=== PATIENT | female | born 1950 | race Caucasian/White ===

== ENCOUNTER 2020-02-26 03:48 | Emergency (ER) | payer OTHER ==
[~2020-02-26] VITALS: Ht 152.4 cm; Wt 101.2 kg
[2020-02-26 05:01] VITALS: BP 152/73
== END 2020-02-26 06:05 | disposition home or self-care (01) ==
LOC: ER 03:48
DX: R68.84 Jaw pain (principal); K08.89 Other specified disorders of teeth and supporting structures
CPT/HCPCS: 70486

== ENCOUNTER 2025-06-14 12:45 | Inpatient (IN) | payer OTHER ==
[~2025-06-14] VITALS: Ht 152.4 cm; Wt 103.3 kg
[~2025-06-14 12:45] MED LIST: APIX5TAB PO; ATEN-60 PO; HYDR25TA4 PO; LOSA-535 PO; POTA-228 PO; ROSU10TA64 PO; TRAZ-228 PO
[2025-06-14 13:52] LABS: Hematocrit 40.2 % (36.0-46.0); Hemoglobin 13.6 g/dL (12.2-16.2); Mean Corpuscular Hemoglobin 32.1 pg (28.0-32.0); Mean Corpuscular Volume 94.5 fL (80.0-100.0); Nucleated Red Blood Cells % 0.0 %
[2025-06-14 14:07] LABS: Albumin 4.4 g/dL (3.2-4.8); Anion Gap 14 (5-15); BUN/Creatinine Ratio 12.4 (10.0-20.0); Blood Urea Nitrogen 15 mg/dL (9-23); Calcium 9.3 mg/dL (8.7-10.4); Carbon Dioxide 25 mmol/L (20-31); Glucose 106 mg/dL (74-106); Sodium 136 mmol/L (136-145); Total Protein 7.0 g/dL (5.7-8.2)
[2025-06-14 14:08] LABS: Alanine Aminotransferase 62 U/L (7-40); Alkaline Phosphatase 120 U/L (46-116); Bilirubin, Total 1.3 mg/dL (0.2-1.0); Chloride 97 mmol/L (98-107); Lipase 65 U/L (12-53); Potassium 3.5 mmol/L (3.5-5.1)
--- NOTE | 2025-06-14 14:16 | DVH ---
EXAM: CT CT AB PEL WO CON-NO ORAL OR IV INDICATION: abd pain TECHNIQUE: Volumetric multidetector CT images of the abdomen and pelvis were obtained without contras t. All CT scans at this facility use dose modulation, iterative reconstruction, and/or weight based d osing when appropriate to reduce radiation dose to as low as reasonably achievable. COMPARISON: None FINDINGS: [LOWER CHEST]: The partially visualized lung bases are clear without a pleural effusion. The cardiac size is normal without pericardial effusion. coronary artery calcifications. [LIVER]: Normal hepatic size without suspicious focal lesion. [GALLBLADDER AND BILIARY TREE]: Gallbladder hydrops. No cholelithiasis. [SPLEEN]: Unremarkable. [PANCREAS]: Unremarkable. [ADRENAL GLANDS]: Unremarkable [KIDNEYS]: No hydronephrosis. No nephroureterolithiasis. No suspicious focal lesion. [BLADDER]: Unremarkable for the degree distention. [REPRODUCTIVE ORGANS]: Unremarkable. [BOWEL/MESENTERY]: Postsurgical changes of the stomach. 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 No CT evidence of bowel obstruction. mild sigmoid diverticulosis. [ASCITES]: Absent [LYMPHADENOPATHY]: No pathologically enlarged lymph nodes by CT size criteria [VASCULATURE]: No aneurysmal dilatation. [ABDOMINAL WALL]: Unremarkable. [MUSCULOSKELETAL]: No acute fracture or aggressive focal osseous lesion. Multifocal degenerative lara ge of the visualized spine. IMPRESSION: 1. No CT evidence of an acute abdominal/pelvic process. 2. Gallbladder hydrops. 3. Mild sigmoid diverticulosis.
[2025-06-14 14:17] LABS: Lactic Acid w/Reflex 2.6 mmol/L (0.4-2.0)
--- NOTE | 2025-06-14 14:25 | ED.PDOC ---
GI ASSESSMENT HPI Comments HPI: 75 year old female presents to the ED with a chief complaint of abdominal pain onset today (06/14/25) about 30 minutes prior to ED arrival. Patient states she was running errands, when she began experiencing RUQ pain, unable to describe pain. Patient states she has not experienced similar pain in the past, is also experiencing nausea. Patient did not take any of her medications today. Denies vomiting, diarrhea, fever, chills, chest pain, shortness of breath, melena, blood in stool, hematemesis, dysuria, hematuria. No other symptoms or modifying factors present at this time. Initial Vitals BP: 149/71 HR: 94 RR: 21 O2 Sat: 97% Temp: 97.7 F Past Medical history: a-fib, HTN, HLD, GERD Past Surgical history: gastric bypass Medications: Eliquis Social History: Denies smoking, ETOH, and drug use. Allergies: NKDA BELHUMEUR: ABD PAIN / NAUSEA. HPI: Poor Historian. REVIEW OF SYSTEMS: CONSTITUTIONAL: Denies acute: fever, diaphoresis, chills, generalized weakness. HEAD: Denies acute: headache, photophobia Eyes: Denies acute: Double vision, vision loss, eye pain, eye discharge. EARS: Denies acute: tinnitus, hearing loss, ear discharge, ear pain, THROAT: Denies acute: sore throat, swelling, difficulty swallowing , pain with swallowing, change in voice. NECK: Denies acute: neck pain, neck swelling, stiff neck. HEART: Denies acute : chest pain, palpitations, LUNGS: Denies acute: SOB, wheezing, cough, hemoptysis ABDOMEN: Denies acute: Vomiting, diarrhea, melena , hematemesis, hematochezia SKIN: Denies acute: rash, redness, lesions, itchiness. EXTREMITIES: Denies acute: calf pain, numbness, tingling, weakness, denies pain in extremity. Denies acute: Low back pain. Neuro: Denies acute: focal neurological deficit, motor or sensory focal neurological deficit, tremors, seizure like activity, confusion, dizziness, change in mental status, loss of bowel or bladder function, cauda equina like symptoms. : Denies acute: dysuria, hematuria, flank pain, increase in urinary frequency. PSYCH: Denies acute: hallucination, suicidal ideation, homicidal ideation. FEMALE: Denies acute: abnormal vaginal bleeding, foul odor, unusual discharge. PHYSICAL EXAM: General: ----moderate----acute distress, awake and alert. Head: normocephalic, atraumatic. Neck: supple, trachea is midline, no swelling. Throat: Normal phonation. Eyes:, no erythema, no purulent discharge, no proptosis, no icterus. Heart: regular rate, regular rhythm, no significant murmur appreciated. Lungs: no apparent respiratory distress, Able to speak in full sentences. No wheezing, no rhonchi, no crackles. No stridors Clear to auscultation bilaterally. Abdomen: Epigastric and right upper quadrant tender to palpation, non distended, soft, no guarding, no rebound, + bowel sounds. Obese Neuro: Awake, Alert, oriented to name, self, situation, follows commands GCS=15. Speech is normal. Skin: no petechia, no purpura, no cyanosis, non-pale, not jaundice. Lower extremities: --no - Pitting edema no deformity, no focal swelling, no calf TTP. Makes eye contact. moves all four extremities. Face: no apparent facial droop. ED COURSE: DISCLAIMER: This medical document was created using an electronic medical record system with voice recognition software and computerized dictation system. Although this document has been carefully reviewed, there might still be some phonetic and typographical errors. Occasional wrong-word or "sound-alike" substitutions may have occurred due to the inherent limitations of voice recognition software. These areas are purely typographical due to imperfections of the software programs and do not reflect any compromise in the patient's medical care. Please read the chart carefully and recognize, using context, where these substitutions have occurred. Chief Complaint: Abdominal Pain Time Seen by MD: 14:00 Reviewed Notes: Medications, Allergies Allergies: Coded Allergies: NO KNOWN ALLERGIES (Unverified , 02/26/20) Home Meds Active Scripts Metoprolol Succinate (Toprol Xl) 50 Mg Tab, 1 TAB PO DAILY, #30 TAB 1 Refill Prov:RIGOBERTO MCCONNELL MD 06/20/25 Losartan Potassium (Losartan Potassium) 25 Mg Tab, 50 MG PO DAILY for 30 Days, #60 TAB 1 Refill Prov:RIGOBERTO MCCONNELL MD 06/20/25 Hctz (Hydrochlorothiazide) 25 Mg Tab, 25 MG PO DAILY for 30 Days, #30 TAB 1 Refill Prov:RIGOBERTO MCCONNELL MD 06/20/25 Apixaban Base (ELIQUIS) 5 Mg Tab, 5 MG PO BID for 30 Days, #60 TAB 0 Refills Prov:RIGOBERTO MCCONNELL MD 06/20/25 Furosemide (Lasix) 20 Mg Tb, 1 TAB PO DAILY, #30 TAB 1 Refill Prov:RIGOBERTO MCCONNELL MD 06/20/25 Digoxin (Digoxin) 125 Mcg Tab, 125 MCG PO DAILY for 30 Days, #30 TAB 0 Refills Prov:RIGOBERTO MCCONNELL MD 06/20/25 Reported Medications Atenolol (Atenolol) 25 Mg Tab, 1 TAB PO DAILY for 90 Days, #90 06/20/25 Hydrochlorothiazide (Hydrochlorothiazide) 25 Mg Tab, 50 MG PO DAILY for 90 Days, #90 06/20/25 Trazodone Hcl (Trazodone Hcl) 100 Mg Tab, 1 TAB PO QPM for 90 Days, #90 06/20/25 Rosuvastatin Calcium (Rosuvastatin Calcium) 10 Mg Tab, 1 TAB PO DAILY for 90 Days, #90 06/20/25 Losartan Potassium (Losartan Potassium) 100 Mg Tab, 1 TAB PO DAILY for 90 Days, #90 06/20/25 Potassium Chloride (Potassium Chloride ER) 10 Meq Tab, 1 TAB PO DAILY for 90 Days, #90 06/20/25 Apixaban Base (ELIQUIS) 5 Mg Tab, 1 TAB PO BID for 90 Days, #180 06/20/25 Discontinued Reported Medications Atenolol (Atenolol) 50 Mg Tab, 50 MG PO DAILY for 30 Days, MG 06/15/25 Trazodone HCl (Trazodone Hydrochloride) 50 Mg Tab, 50 MG PO, TAB 06/15/25 Information Source: Patient Mode of Arrival: Wheelchair Timing: Hours Duration: Since onset Prehospital treatment: None Quality: Sharp Vomitus: None Severity: Moderate Recent: None Recent Hx of: None Pain Location: RUQ Modifying Factors: Nothing Associated sign and symptoms: Abdominal Pain Past Medical History PAST MEDICAL HISTORY: AFIB, GERD, High Lipids, HTN Surgical History (Other): gastric bypass UNIT CONTROLLER History: No Pertinent UNIT CONTROLLER History Family History Family History: Reviewed,noncontributory to illness, No family hx of Cancer, No family hx of DM, No family hx of Heart anthony, No family hx of HTN, No family hx ofKidney anthony, No family hx of Liver anthony, No family hx of Lung anthony, No family hx of Stroke Social History Smoker: Non-Smoker Alcohol: Denies ETOH Use Drugs: Denies Drug Use Lives In: Home Was a procedure done? Was a procedure done?: No GI differential Dx Differential Diagnosis: Other (DDX include Diverticulitis, colitis, gastroenteritis, acute abdomen, SBO, enteritis, constipation, volvulus, appendicitis, Gallbladder disease, choledocolithiasis, ascending cholangitis, pancreatitis, intraAbdominal mass/neoplasm, hepatitis, UTI, pylonephritis, kidney stone, aneurysm, dissection, Inflammatory bowel disease, gastroparesis, ischemic bowel, ) X-Ray, Labs, Meds, VS Vital Signs Date Time Temp Pulse Resp B/P (MAP) Pulse Ox O2 Delivery O2 Flow Rate FiO2 06/14/25 18:34 131/73 06/14/25 18:00 117 28 131/73 (92) 98 06/14/25 16:41 139/80 06/14/25 16:27 129 06/14/25 16:06 152 29 98 Nasal Cannula* 2 28 06/14/25 16:06 98.8 152 29 139/80 (99) 98 98.8 06/14/25 12:53 97.7 94 21 149/71 97 97.7 Lab Test 06/14/25 16:34 06/14/25 15:45 06/14/25 14:39 06/14/25 13:35 Range/Units Troponin I High Sensitivity 31 27 27 </=34 ng/L Hepatitis A IgM Antibody Negative Hepatitis B Surface Antigen Negative Negative Hepatitis B Core IgM Antibody Negative Negative Hepatitis C Antibody Negative Negative Lactic Acid Level 2.3 *H 2.6 *H 0.4-2.0 mmol/L White Blood Count 10.2 4.4-10.8 10^3/uL Red Blood Count 4.25 4.0-5.20 10^6/uL Hemoglobin 13.6 12.2-16.2 g/dL Hematocrit 40.2 36.0-46.0 % Mean Corpuscular Volume 94.5 80.0-100.0 fL Mean Corpuscular Hemoglobin 32.1 H 28.0-32.0 pg Mean Corpuscular Hemoglobin Concent 33.9 32.0-36.0 g/dL Red Cell Distribution Width 13.2 11.8-14.3 % Platelet Count 216 140-450 10^3/uL Mean Platelet Volume 7.7 6.9-10.8 fL Neutrophils (%) (Auto) 77.4 37.0-80.0 % Lymphocytes (%) (Auto) 12.6 10.0-50.0 % Monocytes (%) (Auto) 8.9 0.0-12.0 % Eosinophils (%) (Auto) 0.7 0.0-7.0 % Basophils (%) (Auto) 0.4 0.0-2.0 % Neutrophils # (Auto) 7.9 1.6-8.6 10 ^3/uL Lymphocytes # (Auto) 1.3 0.4-5.4 10 ^3/uL Monocytes # (Auto) 0.9 0-1.3 10 ^3/uL Eosinophils # (Auto) 0.1 0-0.8 10 ^3/uL Basophils # (Auto) 0 0-0.2 10 ^3/uL Nucleated Red Blood Cells 0.0 % Sodium Level 136 136-145 mmol/L Potassium Level 3.5 3.5-5.1 mmol/L Chloride Level 97 L 98-107 mmol/L Carbon Dioxide Level 25 20-31 mmol/L Anion Gap 14 5-15 Blood Urea Nitrogen 15 9-23 mg/dL Creatinine 1.21 H 0.550-1.02 mg/dL Glomerular Filtration Rate Calc 46 >90 mL/min BUN/Creatinine Ratio 12.4 10.0-20.0 Serum Glucose 106 74-106 mg/dL Calcium Level 9.3 8.7-10.4 mg/dL Total Bilirubin 1.3 H 0.2-1.0 mg/dL Aspartate Amino Transferase (AST) 127 H 13-40 U/L Alanine Aminotransferase (ALT) 62 H 7-40 U/L Alkaline Phosphatase 120 H 46-116 U/L Total Protein 7.0 5.7-8.2 g/dL Albumin 4.4 3.2-4.8 g/dL Lipase 65 H 12-53 U/L [facility] [id number] [place] [id number] Ph: [phone] DIAGNOSTIC IMAGING Diagnostic Imaging Report : [id number] Signed PATIENT: CYNTHIA GAONACCT: [id number] UNIT: [id number] : 1950 LOC: ER ROOM / BED: / AGE / SEX: 75 / F ADM STATUS: REG ER SERVICE [id number] ORDERING PHYSICIAN: SUMMER MOLINA DO PROCEDURE(s): ABPL - CT AB PEL WO CON-NO ORAL OR IV REASON: abd pain ORDER NUMBER(s): [id number], ACCESSION NUMBER(s): [id number] EXAM: CT CT AB PEL WO CON-NO ORAL OR IV INDICATION: abd pain TECHNIQUE: Volumetric multidetector CT images of the abdomen and pelvis were obtained without contrast. All CT scans at this facility use dose modulation, iterative reconstruction, and/or weight based dosing when appropriate to reduce radiation dose to as low as reasonably achievable. COMPARISON: None FINDINGS: [LOWER CHEST]: The partially visualized lung bases are clear without a pleural effusion. The cardiac size is normal without pericardial effusion. coronary artery calcifications. [LIVER]: Normal hepatic size without suspicious focal lesion. [GALLBLADDER AND BILIARY TREE]: Gallbladder hydrops. No cholelithiasis. [SPLEEN]: Unremarkable. [PANCREAS]: Unremarkable. [ADRENAL GLANDS]: Unremarkable [KIDNEYS]: No hydronephrosis. No nephroureterolithiasis. No suspicious focal lesion. [BLADDER]: Unremarkable for the degree distention. [REPRODUCTIVE ORGANS]: Unremarkable. [BOWEL/MESENTERY]: Postsurgical changes of the stomach. Overall appearance of Cordell-en-Y gastric bypass. No CT evidence of bowel obstruction. mild sigmoid diverticulosis. [ASCITES]: Absent [LYMPHADENOPATHY]: No pathologically enlarged lymph nodes by CT size criteria [VASCULATURE]: No aneurysmal dilatation. [ABDOMINAL WALL]: Unremarkable. [MUSCULOSKELETAL]: No acute fracture or aggressive focal osseous lesion. Multifocal degenerative change of the visualized spine. IMPRESSION: 1. No CT evidence of an acute abdominal/pelvic process. 2. Gallbladder hydrops. 3. Mild sigmoid diverticulosis. ATED BY: ABDIAZIZ ARRIAZA MD DICTATED DATE/TIME: 06/14/251413 SIGNED BY: ABDIAZIZ ARRIAZA MD SIGNED DATE/TIME: 06/14/251413 CC: Time of 1ST Reevaluation: 14:30 Reevaluation 1ST: Unchanged Time of 2ND Reevaluation: 19:31 (We were just notified that the patient has a fever that was checked rectally. Tylenol was ordered already.) Patient Education/Counseling: Diagnosis, Treatment Family Education/Counseling: No Family Present Comments MDM: patient presented with the above HPI.---abdominal pain---workup was initiated. patient was found with the above mentioned diagnosis. the following medications were ordered: please refer to order lists of meds and tests obtained by myself Dr. Molina. Patient ED course and VS have been stabilized. Patient has been reassessed in the ED and remained in a stable condition. Pertinent incidental findings were discussed with the patient and/or family. Patient/family voices understanding and is agreeable with plan. Patient has been observed in the ED adequate length of time to insure improvement/stability. Escalation of care considered: Consideration of escalation to observation or admission Patient was found with a atrial fibrillation with RVR. Patient later converted to sinus rhythm. Patient was ADMITTED to the medicine team for further evaluation and treatment of their presentation. All the reports of any imaging studies that were ordered by myself were reviewed by myself. Departure 1 Departure Time of Disposition: 14:27 Impression: Primary Impression: Abdominal pain Additional Impressions: Elevated LFTs Atrial fibrillation with RVR Fever Disposition: ADMITTED INPATIENT Condition: Guarded e-Prescriptions Metoprolol Succinate (Toprol Xl) 50 Mg Tab 1 TAB PO DAILY, #30 TAB 1 Refill Prov: RIGOBERTO MCCONNELL MD 06/20/25 Losartan Potassium (Losartan Potassium) 25 Mg Tab 50 MG PO DAILY for 30 Days, #60 TAB 1 Refill Prov: RIGOBERTO MCCONNELL MD 06/20/25 Hctz (Hydrochlorothiazide) 25 Mg Tab 25 MG PO DAILY for 30 Days, #30 TAB 1 Refill Prov: RIGOBERTO MCCONNELL MD 06/20/25 Apixaban Base (ELIQUIS) 5 Mg Tab 5 MG PO BID for 30 Days, #60 TAB 0 Refills Prov: RIGOBERTO MCCONNELL MD 06/20/25 Furosemide (Lasix) 20 Mg Tb 1 TAB PO DAILY, #30 TAB 1 Refill Prov: RIGOBERTO MCCONNELL MD 06/20/25 Digoxin (Digoxin) 125 Mcg Tab 125 MCG PO DAILY for 30 Days, #30 TAB 0 Refills Prov: RIGOBERTO MCCONNELL MD 06/20/25 Discharged With: Self Critical Care Note Critical Care Time?: Yes (45 min-critical care time only) I personally scribed for SUMMER MOLINA DO ([email or web address]) on 06/14/25 at 14:24. Electronically submitted by Neha Hammond ([email or web address]). I personally scribed for SUMMER MOLINA DO ([email or web address]) on 06/14/25 at 16:08. Electronically submitted by Neha Hammond ([email or web address]). SUMMER MOLINA DO Jun 14, 2025 14:24
[2025-06-14 16:06] VITALS: PULSE 152; RESP 29; O2SAT 98
[2025-06-14] MEDS: dilTIAZem 25 MG/5 ML VIAL IV ONE ×2 (16:15→17:30)
[2025-06-14] MEDS: ONDANSETRON HCL 4 MG/2 ML VIAL IV ONE (16:40)
[2025-06-14] MEDS: PANTOPRAZOLE 40 MG TAB PO ONE (16:41)
[2025-06-14] MEDS: SODIUM CHLORIDE 0.9% 500 ML IV ONE ×2 (16:41→19:54)
[2025-06-14] MEDS: fentaNYL CITRATE 100 MCG/2 ML VL IV ONE (16:41)
[2025-06-14] MEDS: SUCRALFATE 1 GM TAB PO ONE (16:41)
[2025-06-14] MEDS: LIDOCAINE VISCOUS 2% 15ML UD PO ONE (16:42)
--- NOTE | 2025-06-14 16:44 | ECG ---
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
[2025-06-14] MEDS ORDERED: NITROGLYCERIN 0.4 MG SL TAB SL PRN (19:15)
[2025-06-14] MEDS ORDERED: ONDANSETRON HCL 4 MG/2 ML VIAL IV PRN (19:15)
[2025-06-14] MEDS ORDERED: MORPHINE SULFATE INJ 2 MG/ml SYRG IV PRN (19:15)
[2025-06-14] MEDS: ACETAMINOPHEN 325 MG TAB PO ONE (19:38)
--- NOTE | 2025-06-14 19:39 | DVH ---
ULTRASOUND ABDOMEN, LIMITED RIGHT UPPER QUADRANT: REASON FOR EXAM: Transaminitis TECHNIQUE: Real-time sector scans in the transverse and longitudinal planes were obtained through th e right upper quadrant of the abdomen. FINDINGS: The liver is of normal size and contour. The liver is mildly echogenic. There is hepatopet al flow in the portal vein. There is no intrahepatic nor extrahepatic biliary ductal dilatation. The common bile duct is not seen. No gallstone is identified. There is no sonographic flaherty's sign. Th e gallbladder wall appears mildly edematous and thickened at 8 mm, nonspecific. The gallbladder is no t distended. The pancreas is obscured by bowel gas. The right kidney measures 9.1 cm. No hydronephrosis or nephrolithiasis is identified. There is no e vidence of right renal mass or cyst. The visualized portions of the abdominal aorta demonstrate no evidence of aneurysmal dilatation. The visualized inferior vena cava is unremarkable. There is no free fluid identified in the right upper quadrant. IMPRESSION: The liver is diffusely echogenic which may be secondary to steatosis or another diffuse hepatic proce ss. Correlate clinically and with liver function tests.
[2025-06-14] MEDS: PIPERACILLIN-TAZOB 3.375GM 100 ML IV ONE (19:55)
[2025-06-14] MEDS: APIXABAN 5 MG TAB PO SCH (22:07)
[2025-06-14 22:21] LABS: Urine Amorphous Crystal FEW /hpf (None Seen); Urine Protein, UAD TRACE (Negative)
[2025-06-15] VITALS (13 sets, daily range): BP systolic 124–147; BP diastolic 82–102; PULSE 80–120; RESP 16–20; TEMP 97.5–99.7; O2SAT 92–100
--- NOTE | 2025-06-15 04:43 | DVHHP2 ---
History of Present Illness Reason for Visit: Abdominal pain History of Present Illness 75-year-old female presents for evaluation of abdominal pain. Patient endorses a one day history of sharp abdominal pain across entire lower abdomen. Denies nausea or vomiting. No diarrhea. Reports having chills. Also patient was noted to be in AFib with RVR in the emergency department and started on Cardizem drip. Denies chest pain or palpitations. No shortness a breath. Past Medical History AFib, dyslipidemia, GERD, hypertension Past Surgical History Gastric bypass Family History Noncontributory Smoke: No ALCOHOL: none Drugs: None Lives: with Family Review of Systems Review of Systems Review of systems are currently negative otherwise addressed in HPI. Allergies: Coded Allergies: NO KNOWN ALLERGIES (Unverified , 02/26/20) Medications Current Medications Medications Dose Ordered Sig/Misti Route Start Time Stop Time Status Last Admin Dose Admin Pantoprazole Sodium 40 mg DAILY IV 06/15/25 10:00 Apixaban 5 mg BID PO 06/14/25 22:00 06/14/25 22:07 5 MG Atenolol 50 mg DAILY PO 06/15/25 10:00 Losartan Potassium 50 mg DAILY PO 06/15/25 10:00 Hydrochlorothiazide 50 mg DAILY PO 06/15/25 10:00 Diltiazem HCl 100 ml @ 5 mls/hr Q20H IV 06/14/25 19:15 06/14/25 19:47 5 MLS/HR Acetaminophen/ Hydrocodone Bitart 1 tab Q4HP PRN PO 06/14/25 19:15 Ondansetron HCl 4 mg Q4HP PRN IV 06/14/25 19:15 Acetaminophen 650 mg Q6HP PRN PO 06/15/25 00:00 Nitroglycerin 0.4 mg Q5MINP PRN SL 06/14/25 19:15 Morphine Sulfate 2 mg Q30M PRN IV 06/14/25 19:15 Exam Vital Signs Vital Signs Date Time Temp Pulse Resp B/P (MAP) Pulse Ox O2 Delivery O2 Flow Rate FiO2 06/15/25 02:30 84 20 112/74 (87) 96 06/15/25 01:44 97.6 97.6 06/14/25 19:30 Nasal Cannula* 2 28 Exam Gen: 75-year-old female mild distress, morbidly obese Skin: Warm, dry, normal color and texture, no rash. HEENT: Normocephalic atraumatic, mucous membranes moist and pink. Neck: Cervical and supraclavicular nodes normal without enlargement, trachea is midline, thyroid gland is normal without masses. Pulmonary: Clear to auscultation and percussion bilaterally. Cardiac: Irregular rhythm Abdomen: Soft, nontender, nondistended, bowel sounds present all 4 quadrants, no guarding, no rigidity, no organomegaly. Extremities: No cyanosis, clubbing, no edema Neuro: Cranial nerves II through XII grossly intact, normal affect and speech, no focal motor deficits. Labs/Xrays ORDERING PHYSICIAN: SUMMER MOLINA DO PROCEDURE(s): ABPL - CT AB PEL WO CON-NO ORAL OR IV REASON: abd pain ORDER NUMBER(s): [id number], ACCESSION NUMBER(s): [id number] EXAM: CT CT AB PEL WO CON-NO ORAL OR IV INDICATION: abd pain TECHNIQUE: Volumetric multidetector CT images of the abdomen and pelvis were obtained without contrast. All CT scans at this facility use dose modulation, iterative reconstruction, and/or weight based dosing when appropriate to reduce radiation dose to as low as reasonably achievable. COMPARISON: None FINDINGS: [LOWER CHEST]: The partially visualized lung bases are clear without a pleural effusion. The cardiac size is normal without pericardial effusion. coronary artery calcifications. [LIVER]: Normal hepatic size without suspicious focal lesion. [GALLBLADDER AND BILIARY TREE]: Gallbladder hydrops. No cholelithiasis. [SPLEEN]: Unremarkable. [PANCREAS]: Unremarkable. [ADRENAL GLANDS]: Unremarkable [KIDNEYS]: No hydronephrosis. No nephroureterolithiasis. No suspicious focal lesion. [BLADDER]: Unremarkable for the degree distention. [REPRODUCTIVE ORGANS]: Unremarkable. [BOWEL/MESENTERY]: Postsurgical changes of the stomach. Overall appearance of Cordell-en-Y gastric bypass. No CT evidence of bowel obstruction. mild sigmoid diverticulosis. [ASCITES]: Absent [LYMPHADENOPATHY]: No pathologically enlarged lymph nodes by CT size criteria [VASCULATURE]: No aneurysmal dilatation. [ABDOMINAL WALL]: Unremarkable. [MUSCULOSKELETAL]: No acute fracture or aggressive focal osseous lesion. Multifocal degenerative change of the visualized spine. IMPRESSION: 1. No CT evidence of an acute abdominal/pelvic process. 2. Gallbladder hydrops. 3. Mild sigmoid diverticulosis. RING PHYSICIAN: ANIRUDH MANZANO PROCEDURE(s): LIVUS - LIVER REASON: Transaminitis ORDER NUMBER(s): [id number], ACCESSION NUMBER(s): [id number] ULTRASOUND ABDOMEN, LIMITED RIGHT UPPER QUADRANT: REASON FOR EXAM: Transaminitis TECHNIQUE: Real-time sector scans in the transverse and longitudinal planes were obtained through the right upper quadrant of the abdomen. FINDINGS: The liver is of normal size and contour. The liver is mildly echogenic. There is hepatopetal flow in the portal vein. There is no intrahepatic nor extrahepatic biliary ductal dilatation. The common bile duct is not seen. No gallstone is identified. There is no sonographic flaherty's sign. The gallbladder wall appears mildly edematous and thickened at 8 mm, nonspecific. The gallbladder is not distended. The pancreas is obscured by bowel gas. The right kidney measures 9.1 cm. No hydronephrosis or nephrolithiasis is identified. There is no evidence of right renal mass or cyst. The visualized portions of the abdominal aorta demonstrate no evidence of aneurysmal dilatation. The visualized inferior vena cava is unremarkable. There is no free fluid identified in the right upper quadrant. IMPRESSION: The liver is diffusely echogenic which may be secondary to steatosis or another diffuse hepatic process. Correlate clinically and with liver function tests. Labs Test 06/14/25 21:40 06/14/25 16:34 06/14/25 15:45 06/14/25 13:35 Range/Units Urine Color Yellow Yellow Urine Clarity Ex.turbid Clear Urine pH 5.5 5.0-9.0 Urine Specific [place] 1.025 1.001-1.035 Urine Protein Trace H Negative Urine Ketones Trace Negative Urine Blood Negative Negative /uL Urine Nitrite Negative Negative Urine Bilirubin 1+ H Negative Urine Urobilinogen 3 H Negative mg/dL Urine Leukocyte Esterase 2+ Negative /uL Urine RBC 2 0 - 4 /hpf Urine Microscopic WBC 27 H 0-5 /HPF Urine Squamous Epithelial Cells Many <5 /hpf Urine Amorphous Crystals Few None Seen /hpf Urine Bacteria Mod H None Seen /hpf Urine Mucus Few None Seen Urine Glucose Normal Normal mg/dL Troponin I High Sensitivity 31 </=34 ng/L Lactic Acid Level 2.3 *H 0.4-2.0 mmol/L White Blood Count 10.2 4.4-10.8 10^3/uL Red Blood Count 4.25 4.0-5.20 10^6/uL Hemoglobin 13.6 12.2-16.2 g/dL Hematocrit 40.2 36.0-46.0 % Mean Corpuscular Volume 94.5 80.0-100.0 fL Mean Corpuscular Hemoglobin 32.1 H 28.0-32.0 pg Mean Corpuscular Hemoglobin Concent 33.9 32.0-36.0 g/dL Red Cell Distribution Width 13.2 11.8-14.3 % Platelet Count 216 140-450 10^3/uL Mean Platelet Volume 7.7 6.9-10.8 fL Neutrophils (%) (Auto) 77.4 37.0-80.0 % Lymphocytes (%) (Auto) 12.6 10.0-50.0 % Monocytes (%) (Auto) 8.9 0.0-12.0 % Eosinophils (%) (Auto) 0.7 0.0-7.0 % Basophils (%) (Auto) 0.4 0.0-2.0 % Neutrophils # (Auto) 7.9 1.6-8.6 10 ^3/uL Lymphocytes # (Auto) 1.3 0.4-5.4 10 ^3/uL Monocytes # (Auto) 0.9 0-1.3 10 ^3/uL Eosinophils # (Auto) 0.1 0-0.8 10 ^3/uL Basophils # (Auto) 0 0-0.2 10 ^3/uL Nucleated Red Blood Cells 0.0 % Sodium Level 136 136-145 mmol/L Potassium Level 3.5 3.5-5.1 mmol/L Chloride Level 97 L 98-107 mmol/L Carbon Dioxide Level 25 20-31 mmol/L Anion Gap 14 5-15 Blood Urea Nitrogen 15 9-23 mg/dL Creatinine 1.21 H 0.550-1.02 mg/dL Glomerular Filtration Rate Calc 46 >90 mL/min BUN/Creatinine Ratio 12.4 10.0-20.0 Serum Glucose 106 74-106 mg/dL Calcium Level 9.3 8.7-10.4 mg/dL Total Bilirubin 1.3 H 0.2-1.0 mg/dL Aspartate Amino Transferase (AST) 127 H 13-40 U/L Alanine Aminotransferase (ALT) 62 H 7-40 U/L Alkaline Phosphatase 120 H 46-116 U/L Total Protein 7.0 5.7-8.2 g/dL Albumin 4.4 3.2-4.8 g/dL Lipase 65 H 12-53 U/L SEPSIS Sepsis Screen Date sepsis recognized/suspect: Jun 14, 2025 Time Sepsis recognized/suspect: 1945 Recent Procedure: No On Antibiotic Therapy: No Respiratory Rate >20: Yes Heart Rate >90: Yes Temp<36 C (96.8 F) or >38.3 C: Yes SBP <90 or MAP <65 mmHG: No New Acute Mental Status Change: No Is the patient on CPAP, BIPAP,: No Vital Signs Date Time Temp Pulse Resp B/P (MAP) Pulse Ox O2 Delivery O2 Flow Rate FiO2 06/15/25 02:30 84 20 112/74 (87) 96 06/15/25 02:00 75 21 114/65 (81) 99 06/15/25 01:44 97.6 97.6 06/15/25 01:30 76 22 131/81 (98) 94 06/15/25 01:00 86 17 131/78 (95) 96 06/15/25 00:30 83 23 126/81 (96) 98 06/15/25 00:00 87 06/15/25 00:00 87 21 119/74 (89) 97 06/14/25 23:30 85 23 114/72 (86) 97 06/14/25 23:00 87 19 113/69 (84) 96 06/14/25 22:45 122/75 06/14/25 22:30 98.9 82 29 106/69 (81) 96 98.9 06/14/25 22:00 93 23 104/51 (68) 95 06/14/25 22:00 104/51 06/14/25 21:30 93 23 119/63 (81) 92 06/14/25 21:00 123/72 06/14/25 21:00 93 26 123/72 (89) 94 Medications Medications Dose Ordered Sig/Misti Route Start Time Stop Time Status Last Admin Dose Admin Acetaminophen 650 mg ONCE ONCE PO 06/14/25 19:30 06/14/25 19:34 DC 06/14/25 19:38 650 MG Apixaban 5 mg BID PO 06/14/25 22:00 06/14/25 22:07 5 MG Diltiazem HCl 10 mg ONCE ONCE IV 06/14/25 17:30 06/14/25 17:31 DC 06/14/25 17:30 10 MG Diltiazem HCl 100 ml @ 5 mls/hr Q20H IV 06/14/25 19:15 06/14/25 19:47 5 MLS/HR Diltiazem HCl 125 ml @ 5 mls/hr Q24H ONCE IV 06/14/25 18:30 06/14/25 19:39 DC 06/14/25 18:34 5 MLS/HR Piperacillin Sod/ Tazobactam Sod 100 ml @ 100 mls/hr ONCE ONCE IV 06/14/25 19:45 06/14/25 20:44 DC 06/14/25 19:55 100 MLS/HR Sodium Chloride 500 ml @ 500 mls/hr Q1H ONCE IV 06/14/25 19:15 06/14/25 20:14 DC 06/14/25 19:54 500 MLS/HR Assessment/Plan Assessment/Plan Assessment AFib with RVR Acute abdominal pain Transaminitis Hypertension Morbid obesity Plan Admit the patient to [facility] to the hospitalist Continue Cardizem drip GI consultation Clear liquid diet Resume home medications Continue treatment per orders. Total critical care time excluding procedures performed this 55 minutes. Plan discussed with: Patient My Orders Orders - ANIRUDH MANZANO AGACN Procedure Category Date Status Time * Cardiology Consult CONS 06/14/25 Transmitted 19:01 * [facility] [employer] CONS 06/14/25 Transmitted 19:01 Pantoprazole PHA 06/15/25 In Process (Protonix) 10:00 Apixaban (Eliquis) PHA 06/14/25 In Process 22:00 Atenolol Tablet PHA 06/15/25 In Process (Tenormin Tablet) 10:00 Losartan Tablet PHA 06/15/25 In Process (Cozaar Tablet) 10:00 Hydrochlorothiazide PHA 06/15/25 In Process Tablet (Hydrochlorot 10:00 LIVER US 06/14/25 Resulted 19:01 Acute Hepatitis Panel LAB 06/14/25 In Process 19:01 Diltiazem 125mg/125ml PHA 06/14/25 In Process Bag Kit (Cardizem) 19:15 Basic Metabolic Panel LAB 06/15/25 Logged 04:00 Admit ADMIT 06/14/25 Transmitted 19:01 Hydrocodone-Acet PHA 06/14/25 In Process 5/325mg Tab ([place] 19:15 Ondansetron Hcl PHA 06/14/25 In Process (Zofran) 19:15 Complete Blood Count LAB 06/15/25 Logged 04:00 Echo 2d Mode Cardiac US 06/14/25 Logged DOP 19:01 Condition: Critical [facility] 06/14/25 In Process 19:01 Clear Liq Diet DIET 06/15/25 Transmitted Breakfast Bedrest With Bathroom [facility] 06/14/25 In Process Privileg 19:01 Nitroglycerin [facility] 06/14/25 In Process Sublingual (Ntrostat 19:15 Morphine Sulfate PHA 06/14/25 In Process Injection 19:15 Stat Ekg For Chest [facility] 06/14/25 In Process Pain 19:01 Notify Md Of Changes [facility] 06/14/25 In Process From Base 19:01 Sales Promoter For [facility] 06/14/25 In Process 24 Hours 19:01 Emergency Dysrhythmia [facility] 06/14/25 In Process Protocol 19:01 Rhythm Strips Once [facility] 06/14/25 In Process Every Shift 19:01 Oxygen By Nasal RT 06/14/25 Transmitted Cannula 19:01 Acetaminophen Tablet PHA 06/15/25 In Process (Tylenol Tablet) 00:00 Date of Service: Jun 14, 2025 Billing Provider: ANIRUDH MANZANO Common Visit Codes: 13614-[id number] CARE 30-74 MIN ANIRUDH MANZANO Jun 15, 2025 04:43
[2025-06-15 05:12] LABS: Chloride 99 mmol/L (98-107); Potassium 3.8 mmol/L (3.5-5.1); Sodium 137 mmol/L (136-145)
[2025-06-15 05:13] LABS: Anion Gap 12 (5-15); Carbon Dioxide 26 mmol/L (20-31)
[2025-06-15 05:15] LABS: Calcium 8.6 mg/dL (8.7-10.4)
[2025-06-15 05:17] LABS: Hematocrit 38.1 % (36.0-46.0); Hemoglobin 12.9 g/dL (12.2-16.2); Mean Corpuscular Hemoglobin 32.6 pg (28.0-32.0); Mean Corpuscular Volume 96.4 fL (80.0-100.0); Nucleated Red Blood Cells % 0.0 %
[2025-06-15 05:18] LABS: BUN/Creatinine Ratio 10.8 (10.0-20.0); Blood Urea Nitrogen 14 mg/dL (9-23)
[2025-06-15 05:19] LABS: Glucose 120 mg/dL (74-106)
[2025-06-15] MEDS ORDERED: [UNRECOGNIZED DRUG - CODE] XX (06:50)
[2025-06-15] MEDS ORDERED: ATEN50TA PO (06:50)
[2025-06-15] MEDS ORDERED: TRAZ-181 PO (06:50)
[2025-06-15] MEDS ORDERED: ATENOLOL 25 MG TAB PO SCH (10:00)
[2025-06-15] MEDS ORDERED: LOSARTAN POTASSIUM 50 MG TAB PO SCH (10:00)
--- NOTE | 2025-06-15 10:30 | DVHINCON2 ---
Date Seen: Jun 15, 2025 Referring Physician SHIRIN Yoder Reason for Consultation A-fib History of Present Illness This is a pleasant 75-year-old female who presented to the emergency room with a chief complaint of abdominal discomfort for 30 minutes prior to arrival. The patient reports she developed bilateral upper quadrant abdominal pain without nausea, vomiting, diarrhea, or constipation. She also complains of pa lpitations, worsening fatigue, and shortness of breath with a productive cough. Denies chest pain, dizziness, syncopal events, lower extremity edema, or PND. States her PCP, Dr. Spears, diagnosed her with atrial fibrillation and placed her on Eliquis therapy on . She has been referred to cariology and is going to establish initial care with Dr. Hughes on 2024. She underwent multiple 12 lead electrocardiograms revealing an atrial fibrillation rhythm up to 129 bpm. Serial troponin levels are negative. Other significant medical history includes hypertension, dyslipidemia, insomnia, and morbid obesity. Past Medical History Past medical history reviewed. No other significant than mentioned above. Past Surgical History Gastric bypass Appendectomy Family History: FH: bladder cancer Family History Family history reviewed. Denies for cardiovascular disease. Social History Denies the use of illicit drugs or tobacco use. Admits to one glass of wine per night. Allergies: Coded Allergies: NO KNOWN ALLERGIES (Unverified , 02/26/20) Home Meds Reported Medications Atenolol (Atenolol) 50 Mg Tab, 50 MG PO DAILY for 30 Days, MG 06/15/25 Losartan Potassium (Losartan Potassium) 1 Pow Pow, 1 POW XX, POW 06/15/25 Trazodone HCl (Trazodone Hydrochloride) 50 Mg Tab, 50 MG PO, TAB 06/15/25 Home Meds Home medications reviewed. Current Medications Current Medications Medications (Trade) Dose Ordered Sig/Misti Route PRN Reason Start Time Stop Time Status Last Admin Pantoprazole Sodium (Protonix) 40 mg DAILY IV 06/15/25 10:00 Apixaban (Eliquis) 5 mg BID PO 06/14/25 22:00 06/14/25 22:07 Atenolol (Tenormin Tablet) 50 mg DAILY PO 06/15/25 10:00 Losartan Potassium (Cozaar Tablet) 50 mg DAILY PO 06/15/25 10:00 Hydrochlorothiazide (hydroCHLOROthiazide TABLET) 50 mg DAILY PO 06/15/25 10:00 Diltiazem HCl 100 ml @ 5 mls/hr Q20H IV 06/14/25 19:15 06/14/25 19:47 Acetaminophen/ Hydrocodone Bitart ([place] 5/325MG Tab) 1 tab Q4HP PRN PO MODERATE PAIN (4-6 PAIN SCALE) 06/14/25 19:15 Ondansetron HCl (Zofran) 4 mg Q4HP PRN IV NAUSEA / VOMITING 06/14/25 19:15 Acetaminophen (Tylenol Tablet) 650 mg Q6HP PRN PO PAIN SCALE 1-3 OR TEMP>100.4 06/15/25 00:00 Nitroglycerin (Ntrostat Sublingual) 0.4 mg Q5MINP PRN SL FOR CHEST PAIN 06/14/25 19:15 Morphine Sulfate 2 mg Q30M PRN IV FOR CHEST PAIN 06/14/25 19:15 Review of Systems Constitutional: Fatigue Ears, Nose, & Throat: No symptom reported Eyes: No symptom reported Neurological: No symptoms reported Pulmonary/Respiratory: SOB, productive cough Cardiovascular: No symptom reported Gastrointestinal: Abdominal pain Genitourinary: No symptom reported Musculoskeletal: No symptom reported Skin: No symptom reported Psychiatric: No symptom reported Endocrine: No symptom reported Hemotologic/Lymphatic: No symptom reported Vital Signs Vital Signs Date Time Temp Pulse Resp B/P (MAP) Pulse Ox O2 Delivery O2 Flow Rate FiO2 06/15/25 05:40 98.1 106 20 129/102 (111) 92 98.1 06/15/25 05:39 Room Air* 0 21 Physical Exam General Appearance: Cooperative. Well developed. Morbidly obese. [id number] acute respiratory distress Head Exam: Normal inspection Neck Exam: Normal inspection. Non-tender. Normal alignment Pulmonary/Respiratory: Chest non-tender. Diminished bilateral breath sounds, expiratory wheezing Cardiovascular/Chest: Irregularly irregular rate and rhythm. AFib, controlled rate. No murmurs. No JVD. Peripheral Pulses: 2+ Radial (R). 2+ Radial (L). 2+ Pedal (R). 2+ Pedal (L) Abdominal Exam: Normal bowel sounds. Soft. Tender Ankle Exam: Positive ankle non-pitting edema Lower extremities: Positive lower extremity non-pitting edema Neuro/Mental Status: A&O x4. Coherent Thoughts/Psych: Normal thought pattern. Appropriate mood and affect. Good judgement and insight Appearance: [id number] acute respiratory distress Skin Exam: Normal inspection. Normal color. Warm. Dry Labs/Diagnostic Data Labs Test 06/15/25 04:46 06/14/25 21:40 06/14/25 16:34 06/14/25 15:45 Range/Units White Blood Count 14.9 #H 4.4-10.8 10^3/uL Red Blood Count 3.95 L 4.0-5.20 10^6/uL Hemoglobin 12.9 12.2-16.2 g/dL Hematocrit 38.1 36.0-46.0 % Mean Corpuscular Volume 96.4 80.0-100.0 fL Mean Corpuscular Hemoglobin 32.6 H 28.0-32.0 pg Mean Corpuscular Hemoglobin Concent 33.8 32.0-36.0 g/dL Red Cell Distribution Width 13.4 11.8-14.3 % Platelet Count 173 140-450 10^3/uL Mean Platelet Volume 7.6 6.9-10.8 fL Neutrophils (%) (Auto) 93.5 H 37.0-80.0 % Lymphocytes (%) (Auto) 2.8 L 10.0-50.0 % Monocytes (%) (Auto) 3.4 0.0-12.0 % Eosinophils (%) (Auto) 0.1 0.0-7.0 % Basophils (%) (Auto) 0.2 0.0-2.0 % Neutrophils # (Auto) 13.9 H 1.6-8.6 10 ^3/uL Lymphocytes # (Auto) 0.4 0.4-5.4 10 ^3/uL Monocytes # (Auto) 0.5 0-1.3 10 ^3/uL Eosinophils # (Auto) 0 0-0.8 10 ^3/uL Basophils # (Auto) 0 0-0.2 10 ^3/uL Nucleated Red Blood Cells 0.0 % Sodium Level 137 136-145 mmol/L Potassium Level 3.8 3.5-5.1 mmol/L Chloride Level 99 98-107 mmol/L Carbon Dioxide Level 26 20-31 mmol/L Anion Gap 12 5-15 Blood Urea Nitrogen 14 9-23 mg/dL Creatinine 1.30 H 0.550-1.02 mg/dL Glomerular Filtration Rate Calc 42 >90 mL/min BUN/Creatinine Ratio 10.8 10.0-20.0 Serum Glucose 120 H 74-106 mg/dL Calcium Level 8.6 L 8.7-10.4 mg/dL Urine Color Yellow Yellow Urine Clarity Ex.turbid Clear Urine pH 5.5 5.0-9.0 Urine Specific [place] 1.025 1.001-1.035 Urine Protein Trace H Negative Urine Ketones Trace Negative Urine Blood Negative Negative /uL Urine Nitrite Negative Negative Urine Bilirubin 1+ H Negative Urine Urobilinogen 3 H Negative mg/dL Urine Leukocyte Esterase 2+ Negative /uL Urine RBC 2 0 - 4 /hpf Urine Microscopic WBC 27 H 0-5 /HPF Urine Squamous Epithelial Cells Many <5 /hpf Urine Amorphous Crystals Few None Seen /hpf Urine Bacteria Mod H None Seen /hpf Urine Mucus Few None Seen Urine Glucose Normal Normal mg/dL Troponin I High Sensitivity 31 </=34 ng/L Lactic Acid Level 2.3 *H 0.4-2.0 mmol/L Test 06/14/25 13:35 Range/Units Total Bilirubin 1.3 H 0.2-1.0 mg/dL Aspartate Amino Transferase (AST) 127 H 13-40 U/L Alanine Aminotransferase (ALT) 62 H 7-40 U/L Alkaline Phosphatase 120 H 46-116 U/L Total Protein 7.0 5.7-8.2 g/dL Albumin 4.4 3.2-4.8 g/dL Lipase 65 H 12-53 U/L Assessment Sepsis with UTI, ?PNA Atrial fibrillation with rapid ventricular rate, Stage IIIb, now rate controlled (on Eliquis/Atenolol at home) Rule out structural heart disease Hypertension Dyslipidemia [place] vs CKD Morbid obesity Plan/Recommendation (Dr. Chavira) We will continue further cardiac evaluation with a transthoracic echocardiogram to evaluate cardiac function. Continue beta-aries for rate control, avoid CCBs until LVEF function evaluated. Transition from Eliquis therapy to therapeutic Lovenox until further cardiac evaluation (?[id number] Score, HAS- BLED Score 3 points). Avoid antiarrhythmic therapy given unknown onset of AFib. Replete electrolytes as necessary, K>4 and Mg >2. Obtain baseline CXR, Mg, TSH, and BNP levels. Monitor ECG changes closely and notify. Septic work-up per primary care team. Thank you for allowing us to participate in this patient's care. Please call if you have any questions or concerns. Critical care time: 45 min. This medical document was created using an electronic medical record system with voice recognition software and computerized dictation system. Although this document has been carefully reviewed, there might still be some phonetic and typographical errors. Occasional wrong-word or ``sound-alike substitutions may have occurred due to the inherent limitations of voice recognition software. These areas are purely typographical due to imperfections of the software programs and do not reflect any compromise in the patient's medical care. Please read the chart carefully and recognize, using context, where these substitutions have occurred. Plan discussed with: Patient, Other NYHA Physical activity limitations: NA Date of Service: Jun 15, 2025 Billing Provider: NUBIA BOSTON Cardiology Common Codes: [id number] CARE 30-74 MIN NUBIA BOSTON Jun 15, 2025 10:30
--- NOTE | 2025-06-15 11:07 | DVH ---
EXAM: XY CHEST PORTABLE Indication: SOB Technique: Single frontal view of the chest was obtained Comparison: None FINDINGS: Lines and Tubes: None Lungs: No focal consolidation. Pleura: No effusion. No pneumothorax. Cardiomediastinal contours: Cardiomegaly. Atherosclerotic vascular calcifications of the thoracic ao rta are noted. Bones: No acute osseous abnormality. IMPRESSION: No acute cardiopulmonary disease.
[2025-06-15 11:30] LABS: Magnesium 1.7 mg/dL (1.6-2.6); Triglycerides 68.0 mg/dL (< 150)
[2025-06-15 11:31] LABS: Cholesterol 125.0 mg/dL (< 200)
[2025-06-15 11:37] LABS: HDL Cholesterol 61.0 mg/dL (40-59)
[2025-06-15] MEDS: PANTOPRAZOLE 40 MG/10 ML VIAL INJ IV SCH (11:49)
[2025-06-15] MEDS: hydroCHLOROthiazide 25 MG TAB PO SCH (11:51)
[2025-06-15] MEDS: ENOXAPARIN SOD 100 MG/1 ML SYRINGE SC ONE (11:52)
[2025-06-15 13:41] LABS: COVID19 ANTIGEN SOFIA FIA NEGATIVE (NEGATIVE)
[2025-06-15] MEDS: MAGNESIUM SULFATE 1GM/100ML 100 ML IV ONE (14:15)
--- NOTE | 2025-06-15 14:27 | DVHINCON2 ---
GI Consult Consult Note GI consult note Date of Consultation: 06/15/2025 Chief Complaint: Abdominal pain Referring Physician: Paresh CARPIO H&P: 75-year-old female admitted with complains of abdominal pain. Patient sharp abdominal pain across the lower abdomen, admits to feeling better at this time. No nausea or vomiting. Denies hematemesis. No diarrhea. Bowel movement one day ago denies melena or red blood in stool. Patient has been noted to have AFib and has been seen by Cardiology. Status post EGD and colonoscopy two years ago within normal limits per patient Patient admits to having one alcoholic drink every day. Denies Tylenol use Past Medical History: AFib, dyslipidemia, GERD, hypertension Past Surgical History: Gastric bypass Social History: NO smoking, +drinking ETOH Family History: Noncontributory Review of Systems: Constitutional: no fever, chill, weight loss HEENT: no eye pain, no hearing loss, no oral lesion, no scleral icterus Heart: no chest pain, no chest pressure Lung: no cough, no dyspnea with exertion Abdomen: see HPI Physical exam: General: NAD, AAOX3 Chest: lung sanchez clear to auscultation Heart: RRR, no murmur Abdomen: non-distended, no tenderness to palpation, +BS Labs: Labs Test 06/15/25 12:01 06/15/25 10:40 06/15/25 04:46 06/14/25 21:40 Range/Units Influenza Type A Antigen Negative Negative Influenza Type B Antigen Negative Negative SARS-CoV-2 Antigen (Rapid) Negative NEGATIVE Magnesium Level 1.7 1.6-2.6 mg/dL Triglycerides Level 68 < 150 mg/dL Cholesterol Level 125 < 200 mg/dL LDL Cholesterol 45 < 100 mg/dL HDL Cholesterol 61 H 40-59 mg/dL Thyroid Stimulating Hormone (TSH) 1.30 0.55-4.78 uIU/mL White Blood Count 14.9 #H 4.4-10.8 10^3/uL Red Blood Count 3.95 L 4.0-5.20 10^6/uL Hemoglobin 12.9 12.2-16.2 g/dL Hematocrit 38.1 36.0-46.0 % Mean Corpuscular Volume 96.4 80.0-100.0 fL Mean Corpuscular Hemoglobin 32.6 H 28.0-32.0 pg Mean Corpuscular Hemoglobin Concent 33.8 32.0-36.0 g/dL Red Cell Distribution Width 13.4 11.8-14.3 % Platelet Count 173 140-450 10^3/uL Mean Platelet Volume 7.6 6.9-10.8 fL Neutrophils (%) (Auto) 93.5 H 37.0-80.0 % Lymphocytes (%) (Auto) 2.8 L 10.0-50.0 % Monocytes (%) (Auto) 3.4 0.0-12.0 % Eosinophils (%) (Auto) 0.1 0.0-7.0 % Basophils (%) (Auto) 0.2 0.0-2.0 % Neutrophils # (Auto) 13.9 H 1.6-8.6 10 ^3/uL Lymphocytes # (Auto) 0.4 0.4-5.4 10 ^3/uL Monocytes # (Auto) 0.5 0-1.3 10 ^3/uL Eosinophils # (Auto) 0 0-0.8 10 ^3/uL Basophils # (Auto) 0 0-0.2 10 ^3/uL Nucleated Red Blood Cells 0.0 % Sodium Level 137 136-145 mmol/L Potassium Level 3.8 3.5-5.1 mmol/L Chloride Level 99 98-107 mmol/L Carbon Dioxide Level 26 20-31 mmol/L Anion Gap 12 5-15 Blood Urea Nitrogen 14 9-23 mg/dL Creatinine 1.30 H 0.550-1.02 mg/dL Glomerular Filtration Rate Calc 42 >90 mL/min BUN/Creatinine Ratio 10.8 10.0-20.0 Serum Glucose 120 H 74-106 mg/dL Hemoglobin A1c 5.2 <5.7 % A1C Calcium Level 8.6 L 8.7-10.4 mg/dL B-Type Natriuretic Peptide 259.21 0-100 pg/mL Plasma/Serum Blood Alcohol < 3.0 <10 mg/dL Urine Color Yellow Yellow Urine Clarity Ex.turbid Clear Urine pH 5.5 5.0-9.0 Urine Specific [place] 1.025 1.001-1.035 Urine Protein Trace H Negative Urine Ketones Trace Negative Urine Blood Negative Negative /uL Urine Nitrite Negative Negative Urine Bilirubin 1+ H Negative Urine Urobilinogen 3 H Negative mg/dL Urine Leukocyte Esterase 2+ Negative /uL Urine RBC 2 0 - 4 /hpf Urine Microscopic WBC 27 H 0-5 /HPF Urine Squamous Epithelial Cells Many <5 /hpf Urine Amorphous Crystals Few None Seen /hpf Urine Bacteria Mod H None Seen /hpf Urine Mucus Few None Seen Urine Glucose Normal Normal mg/dL Test 06/14/25 16:34 06/14/25 15:45 06/14/25 13:35 Range/Units Troponin I High Sensitivity 31 </=34 ng/L Lactic Acid Level 2.3 *H 0.4-2.0 mmol/L Total Bilirubin 1.3 H 0.2-1.0 mg/dL Aspartate Amino Transferase (AST) 127 H 13-40 U/L Alanine Aminotransferase (ALT) 62 H 7-40 U/L Alkaline Phosphatase 120 H 46-116 U/L Total Protein 7.0 5.7-8.2 g/dL Albumin 4.4 3.2-4.8 g/dL Lipase 65 H 12-53 U/L Imaging: CT abdomen pelvis IMPRESSION: 1. No CT evidence of an acute abdominal/pelvic process. 2. Gallbladder hydrops. 3. Mild sigmoid diverticulosis. Liver ultrasound IMPRESSION: The liver is diffusely echogenic which may be secondary to steatosis or another diffuse hepatic process. Correlate clinically and with liver function tests. Assessment: Abdominal pain improving Transaminitis Gallbladder hydrops Plan: Discussed with Dr. Weiss CMP and lipase in a.m. Surgical consult recommended DC alcohol discussed extensively If patient's symptoms improve Outpatient GI follow-up recommended Plan discussed with patient and daughter at bedside Thank you for this consult Date of Service: Jun 15, 2025 Billing Provider: JESSE WILLS Common Visit Codes: CONSULT ONLY Consultation Codes: [id number] CONSULT <60MIN JESSE WILLS Jun 15, 2025 14:27
[2025-06-15] MEDS: FUROSEMIDE 40 MG/4 ML VIAL IV ONE (15:47)
[2025-06-15] MEDS: METOPROLOL SUCCINATE XL 50 MG TAB PO ONE (15:47)
--- NOTE | 2025-06-15 17:21 | DVHPN2 ---
Subjective Patient continues to feel short of breath., seen at bedside today. Reviewed: H&P Changes from previous H/P or p: No Changes General: Per HPI Objective Vitals Vital Signs Date Time Temp Pulse Resp B/P (MAP) Pulse Ox O2 Delivery O2 Flow Rate FiO2 06/15/25 17:00 99.7 83 19 128/85 (99) 95 99.7 06/15/25 15:12 0.0 21 06/15/25 05:39 Room Air* Intake/Output Intake and Output 06/15/25 07:00 Intake Total 600 ml Balance 600 ml IV Total 600 ml Exam GEN: Healthy appearing, well-developed, NAD. HEENT: NC/AT; MMM. CV: Irregularly irregular, JVD present up to angle mandible LUNGS: Rales up to lower lobes bilaterally ABD: Soft, NT/ND, NBS, no masses or organomegaly. EXT: skin Warm, well perfused. no rashes. Lower extremity edema 1+ bilateral NEURO: Ambulating with no limitations. No focal deficits. Medications Current Medications Medications Dose Ordered Sig/Misti Route Start Time Stop Time Status Last Admin Dose Admin Pantoprazole Sodium 40 mg DAILY IV 06/15/25 10:00 06/15/25 11:49 40 MG Hydrochlorothiazide 50 mg DAILY PO 06/15/25 10:00 06/15/25 11:51 50 MG Acetaminophen/ Hydrocodone Bitart 1 tab Q4HP PRN PO 06/14/25 19:15 Ondansetron HCl 4 mg Q4HP PRN IV 06/14/25 19:15 Acetaminophen 650 mg Q6HP PRN PO 06/15/25 00:00 Nitroglycerin 0.4 mg Q5MINP PRN SL 06/14/25 19:15 Morphine Sulfate 2 mg Q30M PRN IV 06/14/25 19:15 Enoxaparin Sodium 100 mg Q12HR SC 06/15/25 22:00 Ceftriaxone Sodium 50 ml @ 100 mls/hr DAILY@09 IV 06/16/25 09:00 Losartan Potassium 25 mg DAILY PO 06/16/25 10:00 Metoprolol Succinate 50 mg DAILY PO 06/16/25 10:00 Ipratropium [place] 0.5 mg Q4HR NEB 06/15/25 18:00 Laboratory Results Laboratory Tests 06/15/25 04:46 Chemistry Test 06/15/25 04:46 06/15/25 10:40 Calcium Level 8.6 mg/dL (8.7-10.4) L Magnesium Level 1.7 mg/dL (1.6-2.6) Lipid panel Test 06/15/25 10:40 Cholesterol Level 125 mg/dL (< 200) HDL Cholesterol 61 mg/dL (40-59) H Triglycerides Level 68 mg/dL (< 150) Cardiac Markers Test 06/15/25 04:46 B-Type Natriuretic Peptide 259.21 pg/mL (0-100) HgA1c, TSH Test 06/15/25 04:46 06/15/25 10:40 Hemoglobin A1c 5.2 % A1C (<5.7) Thyroid Stimulating Hormone (TSH) 1.30 uIU/mL (0.55-4.78) Urinalysis Test 06/14/25 21:40 Urine Color Yellow (Yellow) Urine Clarity Ex.turbid (Clear) Urine pH 5.5 (5.0-9.0) Urine Specific [place] 1.025 (1.001-1.035) Urine Protein Trace (Negative) H Urine Ketones Trace (Negative) Urine Blood Negative /uL (Negative) Urine Nitrite Negative (Negative) Urine Bilirubin 1+ (Negative) H Urine Urobilinogen 3 mg/dL (Negative) H Urine Leukocyte Esterase 2+ /uL (Negative) Urine RBC 2 /hpf (0 - 4) Urine Microscopic WBC 27 /HPF (0-5) H Urine Squamous Epithelial Cells Many /hpf (<5) Urine Amorphous Crystals Few /hpf (None Seen) Urine Bacteria Mod /hpf (None Seen) H Urine Mucus Few (None Seen) Urine Glucose Normal mg/dL (Normal) Labs and/or images reviewed: Labs reviewed by me, Image(s) reviewed by me Assessment/Plan Assessment/Plan 75-year-old female w pmhx AFib, dyslipidemia, GERD, hypertension presents for evaluation of abdominal pain. Patient endorses a one day history of sharp abdominal pain across entire lower abdomen. Denies nausea or vomiting. No diarrhea. Reports having chills. Also patient was noted to be in AFib with RVR in the emergency department and started on Cardizem drip. Denies chest pain or palpitations. No shortness a breath. 06/15/2025: Patient here with AFib RVR, initially started on Cardizem drip, now discontinued by Cardiology, continuing beta aries. Patient has dyspnea on exertion, leg swelling orthopnea, rales, JVD, BNP elevated, CXR with pulmonary vascular congestion patient meeting [place] criteria for heart failure. Echo is pending to see if it is systolic versus diastolic. EF pending. Cardiology on board for AFib RVR. She was started on metoprolol 50 XL,. We will trial Lasix 41 time today. Continue patient on telemetry. Pending echo read. Diagnosis: AFib RVR CHF, acute , in exacerbation, diastolic dysfunction likely Morbid Obesity BMI 44.9 Acute abdominal pain, resolving, likely PUD and/or GERD Transaminitis , harrison possible Hypertension Plan: IV Lasix Metoprolol XL 50 mg RN Atrovent q.6, as needed for shortness of breath, Stopped Cardizem drip Cardiology following, appreciate recommendations Continue other home medications Tele Full code Plan discussed with: Patient My Orders Orders - RIGOBERTO MCCONNELL MD Procedure Category Date Status Time Ipratropium Medneb PHA 06/15/25 In Process (Atrovent Medneb) 18:00 Date of Service: Jun 15, 2025 Billing Provider: RIGOBERTO MCCONNELL MD Common Visit Codes: [id number] INP/OBS CARE(HIGH) RIGOBERTO MCCONNELL MD Jun 15, 2025 17:21
[2025-06-15] MEDS: DIGOXIN (250MCG/ML) 2 ML AMPULE IV ONE (17:28)
[2025-06-15] MEDS: IPRATROPIUM BROM 0.5 MG/2.5ML INH SOL NEB SCH (19:23)
[2025-06-15] MEDS: ENOXAPARIN SOD 100 MG/1 ML SYRINGE SC SCH (21:19)
--- NOTE | 2025-06-15 23:33 | DVHINCON2 ---
Date Seen: Jun 15, 2025 Referring Physician SHIRIN Yoder Reason for Consultation A-fib History of Present Illness This is a 75-year-old female with a past medical history of hypertension, dyslipidemia, insomnia, and morbid obesity who presented to the emergency room with a complaint of abdominal discomfort for 30 minutes prior to arrival. Patient reports she developed bilateral upper quadrant abdominal pain without nausea, vomiting, diarrhea, or constipation. She also complains of heart palpitations, worsening fatigue, and shortness of breath with a productive cough. Denies chest pain, dizziness, syncopal events, lower extremity edema, or PND. States her PCP, Dr. Spears, diagnosed her with atrial fibrillation and placed her on Eliquis therapy on . She has been referred to cariology and is going to establish initial care with Dr. Hughes on 2024. She underwent multiple 12 lead electrocardiograms revealing an atrial fibrillation rhythm up to 129 bpm. Serial troponin levels are negative. CT ABD/PEL shows gallbladder hydrops. Mild sigmoid diverticulosis. Patient was admitted to the hospital. I am asked to consult on this patient. Past Medical History Past medical history reviewed. No other significant than mentioned above. Past Surgical History Gastric bypass Appendectomy Family History: FH: bladder cancer Allergies: Coded Allergies: NO KNOWN ALLERGIES (Unverified , 02/26/20) Home Meds Reported Medications Atenolol (Atenolol) 50 Mg Tab, 50 MG PO DAILY for 30 Days, MG 06/15/25 Losartan Potassium (Losartan Potassium) 1 Pow Pow, 1 POW XX, POW 06/15/25 Trazodone HCl (Trazodone Hydrochloride) 50 Mg Tab, 50 MG PO, TAB 06/15/25 Current Medications Current Medications Medications (Trade) Dose Ordered Sig/Misti Route PRN Reason Start Time Stop Time Status Last Admin Pantoprazole Sodium (Protonix) 40 mg DAILY IV 06/15/25 10:00 06/15/25 11:49 Apixaban (Eliquis) 5 mg BID PO 06/14/25 22:00 06/15/25 10:14 DC 06/14/25 22:07 Atenolol (Tenormin Tablet) 50 mg DAILY PO 06/15/25 10:00 06/15/25 10:24 DC Losartan Potassium (Cozaar Tablet) 50 mg DAILY PO 06/15/25 10:00 06/15/25 10:24 DC Hydrochlorothiazide (hydroCHLOROthiazide TABLET) 50 mg DAILY PO 06/15/25 10:00 06/15/25 11:51 Diltiazem HCl 100 ml @ 5 mls/hr Q20H IV 06/14/25 19:15 06/15/25 10:14 DC 06/14/25 19:47 Acetaminophen/ Hydrocodone Bitart ([place] 5/325MG Tab) 1 tab Q4HP PRN PO MODERATE PAIN (4-6 PAIN SCALE) 06/14/25 19:15 Ondansetron HCl (Zofran) 4 mg Q4HP PRN IV NAUSEA / VOMITING 06/14/25 19:15 Acetaminophen (Tylenol Tablet) 650 mg Q6HP PRN PO PAIN SCALE 1-3 OR TEMP>100.4 06/15/25 00:00 Nitroglycerin (Ntrostat Sublingual) 0.4 mg Q5MINP PRN SL FOR CHEST PAIN 06/14/25 19:15 Morphine Sulfate 2 mg Q30M PRN IV FOR CHEST PAIN 06/14/25 19:15 Enoxaparin Sodium (Lovenox) 100 mg Q12HR SC 06/15/25 22:00 Ceftriaxone Sodium 50 ml @ 100 mls/hr DAILY@09 IV 06/16/25 09:00 Losartan Potassium (Cozaar Tablet) 25 mg DAILY PO 06/16/25 10:00 Metoprolol Succinate (Toprol Xl) 50 mg DAILY PO 06/16/25 10:00 Review of Systems Constitutional: Fatigue Ears, Nose, & Throat: No symptom reported Eyes: No symptom reported Neurological: No symptoms reported Pulmonary/Respiratory: SOB, productive cough Cardiovascular: No symptom reported Gastrointestinal: Abdominal pain Genitourinary: No symptom reported Musculoskeletal: No symptom reported Skin: No symptom reported Psychiatric: No symptom reported Endocrine: No symptom reported Hemotologic/Lymphatic: No symptom reported Vital Signs Vital Signs Date Time Temp Pulse Resp B/P (MAP) Pulse Ox O2 Delivery O2 Flow Rate FiO2 06/15/25 11:51 124/92 06/15/25 09:00 97.5 80 16 99 97.5 06/15/25 05:39 Room Air* 0 21 Physical Exam GENERAL: Alert and oriented x 3. No acute distress. Morbidly obese. EYES: PERRL, EOMI. Anicteric. HENT: Moist mucous membranes. LUNGS: Diminished bilateral breath sounds, expiratory wheezing. CARDIOVASCULAR: Irregular rate and rhythm. ABDOMEN: Soft, nontender and nondistended. EXTREMITIES: BLE non-pitting edema. NEUROLOGIC: No focal neurological deficits. SKIN: Warm, dry. Labs/Diagnostic Data Labs Test 06/15/25 12:01 06/15/25 10:40 06/15/25 04:46 06/14/25 21:40 Range/Units Magnesium Level 1.7 1.6-2.6 mg/dL Triglycerides Level 68 < 150 mg/dL Cholesterol Level 125 < 200 mg/dL LDL Cholesterol 45 < 100 mg/dL HDL Cholesterol 61 H 40-59 mg/dL Thyroid Stimulating Hormone (TSH) 1.30 0.55-4.78 uIU/mL White Blood Count 14.9 #H 4.4-10.8 10^3/uL Red Blood Count 3.95 L 4.0-5.20 10^6/uL Hemoglobin 12.9 12.2-16.2 g/dL Hematocrit 38.1 36.0-46.0 % Mean Corpuscular Volume 96.4 80.0-100.0 fL Mean Corpuscular Hemoglobin 32.6 H 28.0-32.0 pg Mean Corpuscular Hemoglobin Concent 33.8 32.0-36.0 g/dL Red Cell Distribution Width 13.4 11.8-14.3 % Platelet Count 173 140-450 10^3/uL Mean Platelet Volume 7.6 6.9-10.8 fL Neutrophils (%) (Auto) 93.5 H 37.0-80.0 % Lymphocytes (%) (Auto) 2.8 L 10.0-50.0 % Monocytes (%) (Auto) 3.4 0.0-12.0 % Eosinophils (%) (Auto) 0.1 0.0-7.0 % Basophils (%) (Auto) 0.2 0.0-2.0 % Neutrophils # (Auto) 13.9 H 1.6-8.6 10 ^3/uL Lymphocytes # (Auto) 0.4 0.4-5.4 10 ^3/uL Monocytes # (Auto) 0.5 0-1.3 10 ^3/uL Eosinophils # (Auto) 0 0-0.8 10 ^3/uL Basophils # (Auto) 0 0-0.2 10 ^3/uL Nucleated Red Blood Cells 0.0 % Sodium Level 137 136-145 mmol/L Potassium Level 3.8 3.5-5.1 mmol/L Chloride Level 99 98-107 mmol/L Carbon Dioxide Level 26 20-31 mmol/L Anion Gap 12 5-15 Blood Urea Nitrogen 14 9-23 mg/dL Creatinine 1.30 H 0.550-1.02 mg/dL Glomerular Filtration Rate Calc 42 >90 mL/min BUN/Creatinine Ratio 10.8 10.0-20.0 Serum Glucose 120 H 74-106 mg/dL Hemoglobin A1c 5.2 <5.7 % A1C Calcium Level 8.6 L 8.7-10.4 mg/dL B-Type Natriuretic Peptide 259.21 0-100 pg/mL Plasma/Serum Blood Alcohol < 3.0 <10 mg/dL Urine Color Yellow Yellow Urine Clarity Ex.turbid Clear Urine pH 5.5 5.0-9.0 Urine Specific [place] 1.025 1.001-1.035 Urine Protein Trace H Negative Urine Ketones Trace Negative Urine Blood Negative Negative /uL Urine Nitrite Negative Negative Urine Bilirubin 1+ H Negative Urine Urobilinogen 3 H Negative mg/dL Urine Leukocyte Esterase 2+ Negative /uL Urine RBC 2 0 - 4 /hpf Urine Microscopic WBC 27 H 0-5 /HPF Urine Squamous Epithelial Cells Many <5 /hpf Urine Amorphous Crystals Few None Seen /hpf Urine Bacteria Mod H None Seen /hpf Urine Mucus Few None Seen Urine Glucose Normal Normal mg/dL Test 06/14/25 16:34 06/14/25 15:45 06/14/25 13:35 Range/Units Troponin I High Sensitivity 31 </=34 ng/L Lactic Acid Level 2.3 *H 0.4-2.0 mmol/L Total Bilirubin 1.3 H 0.2-1.0 mg/dL Aspartate Amino Transferase (AST) 127 H 13-40 U/L Alanine Aminotransferase (ALT) 62 H 7-40 U/L Alkaline Phosphatase 120 H 46-116 U/L Total Protein 7.0 5.7-8.2 g/dL Albumin 4.4 3.2-4.8 g/dL Lipase 65 H 12-53 U/L Assessment Sepsis with UTI, ?PNA. Atrial fibrillation with rapid ventricular rate, Stage IIIb, now rate controlled (on Eliquis/Atenolol at home). Rule out structural heart disease. Hypertension. Dyslipidemia. [place] vs CKD. Morbid obesity. Plan/Recommendation I agree with your ongoing assessment and care of plan. Patient has been seen by Danielle Fuentes NP on my behalf, her and I discussed the plan with the patient. We will continue further cardiac evaluation with a transthoracic echocardiogram to evaluate cardiac function. Continue beta-aries for rate control, avoid CCBs until LVEF function evaluated. Transition from Eliquis therapy to therapeutic Lovenox until further cardiac evaluation (?[id number] Score, HAS-BLED Score 3 points). Avoid antiarrhythmic therapy given unknown onset of AFib. Replete electrolytes as necessary, K>4 and Mg >2. Obtain baseline CXR, Mg, TSH, and BNP levels. Monitor ECG changes closely and notify. Septic work-up per primary care team. Additional plan as per the hospital course. Plan discussed with: Patient NYHA Physical activity limitations: NA Date of Service: Jun 15, 2025 Billing Provider: AFIA CASPER MD Cardiology Common Codes: [id number] HOSPITAL CARE, [id number] CARE 30-74 MIN AFIA CASPER MD Jun 15, 2025 13:38
[2025-06-16] VITALS (16 sets, daily range): BP systolic 122–157; BP diastolic 74–93; PULSE 75–113; RESP 16–20; TEMP 97.3–100; O2SAT 96–100
[2025-06-16 06:03] LABS: Hematocrit 36.6 % (36.0-46.0); Hemoglobin 12.3 g/dL (12.2-16.2); Mean Corpuscular Hemoglobin 32.3 pg (28.0-32.0); Mean Corpuscular Volume 95.8 fL (80.0-100.0); Nucleated Red Blood Cells % 0.1 %
[2025-06-16 06:18] LABS: Albumin 3.5 g/dL (3.2-4.8); Anion Gap 10 (5-15); BUN/Creatinine Ratio 10.6 (10.0-20.0); Blood Urea Nitrogen 12 mg/dL (9-23); Carbon Dioxide 29 mmol/L (20-31); Glucose 99 mg/dL (74-106); Lipase 32 U/L (12-53); Sodium 136 mmol/L (136-145); Total Protein 6.0 g/dL (5.7-8.2)
[2025-06-16 06:21] LABS: Alanine Aminotransferase 414 U/L (7-40); Alkaline Phosphatase 200 U/L (46-116); Bilirubin, Total 2.0 mg/dL (0.2-1.0); Calcium 8.6 mg/dL (8.7-10.4); Chloride 97 mmol/L (98-107); Potassium 3.2 mmol/L (3.5-5.1)
--- NOTE | 2025-06-16 07:25 | ECG ---
[facility] Test Date: 2025-06-15 Test Time: 19:00:01 Pat Name: ISIAH GAONA Department: Respiratoy Room: 0249T B Gender: F Market Director: EDER : 1950 Requested By: NUBIA BOSTON Order Number: [id number] Reading MD: Yoan Aguila Measurements Intervals [place] Rate: 105 P: 0 VA: 0 QRS: -24 QRSD: 87 T: 149 QT: 388 QTc: 513 Interpretive Statements Atrial fibrillation Paired ventricular premature complexes Borderline left axis deviation Low voltage, precordial leads Consider anterior infarct Borderline repolarization abnormality Prolonged QT interval Electronically Signed On 06-20-2025 21:41:03 PDT by Yoan Aguila Please click the below link to view image of tracing.
[2025-06-16] MEDS: METOPROLOL SUCCINATE XL 50 MG TAB PO SCH (09:37)
[2025-06-16] MEDS: LOSARTAN POTASSIUM 50 MG TAB PO SCH (09:42)
--- NOTE | 2025-06-16 10:44 | DVHPN2 ---
Progress Note - Dictate Date Seen: Jun 16, 2025 Medical Necessity Reason Pt with a Central, PICC or Fol: No Subjective No new GI complaints Abdominal pain feels better Patient evaluated by Cardiology for AFib Mild leukocytosis Liver enzymes are worsening with a bilirubin up to two and elevated transaminases Lipase level is now normal Ultrasound had shown gallbladder hydrops on CT scan Ultrasound showed thickening of the gallbladder wall but no gallbladder distention and no stones vital signs Vital Sign Date Time Temp Pulse Resp B/P (MAP) Pulse Ox O2 Delivery O2 Flow Rate FiO2 06/16/25 09:42 141/90 06/16/25 09:37 99 06/16/25 08:20 18 99 Nasal Cannula* 2 28 06/16/25 05:00 97.3 97.3 Total Intake and Output 06/15/25 06/15/25 06/16/25 15:00 23:00 07:00 Intake Total 50 ml 450 ml 200 ml Balance 50 ml 450 ml 200 ml medications Current Medications Medications Dose Ordered Sig/Misti Route Start Time Stop Time Status Last Admin Dose Admin Pantoprazole Sodium 40 mg DAILY IV 06/15/25 10:00 06/16/25 09:35 40 MG Hydrochlorothiazide 50 mg DAILY PO 06/15/25 10:00 06/16/25 09:36 50 MG Acetaminophen/ Hydrocodone Bitart 1 tab Q4HP PRN PO 06/14/25 19:15 Ondansetron HCl 4 mg Q4HP PRN IV 06/14/25 19:15 Acetaminophen 650 mg Q6HP PRN PO 06/15/25 00:00 Nitroglycerin 0.4 mg Q5MINP PRN SL 06/14/25 19:15 Morphine Sulfate 2 mg Q30M PRN IV 06/14/25 19:15 Enoxaparin Sodium 100 mg Q12HR SC 06/15/25 22:00 06/16/25 09:38 100 MG Ceftriaxone Sodium 50 ml @ 100 mls/hr DAILY@09 IV 06/16/25 09:00 06/16/25 08:46 100 MLS/HR Losartan Potassium 25 mg DAILY PO 06/16/25 10:00 06/16/25 09:42 25 MG Metoprolol Succinate 50 mg DAILY PO 06/16/25 10:00 06/16/25 09:37 50 MG Ipratropium [place] 0.5 mg Q4HR NEB 06/15/25 18:00 06/16/25 06:56 0.5 MG Furosemide 40 mg DAILY IV 06/16/25 10:15 objective General: NAD, AAOX3 Chest: lung sanchez clear to auscultation Heart: RRR, no murmur Abdomen: non-distended, no tenderness to palpation, +BS laboratory and microbiology Laboratory Tests 06/16/25 05:36 06/16/25 04:00 Test 06/16/25 05:36 Range/Units Serum Glucose 99 74-106 mg/dL Problems(with codes): (1) Atrial fibrillation with RVR (2) Elevated LFTs (3) Abdominal pain (4) Fever (5) Morbid obesity (6) Gallbladder hydrops Prognosis Plan Await hepatitis panel ; monitor labs; await urine culture; check VINNIE and serum ferritin Suspect possible acalculous cholecystitis and pancreatitis Gallbladder wall thickening could also be related to edema and fluid retention Consider HIDA scan or MRCP Surgical consult is pending Clear liquid diet IV PPI and IV antibiotics on board GI Services we will follow up patient Plan discussed with: Other (Brigitte Patterson) MILLY GALVAN MD Jun 16, 2025 10:44
[2025-06-16] MEDS: FUROSEMIDE 40 MG/4 ML VIAL IV SCH (10:50)
[2025-06-16 10:52] LABS: Hepatitis B Surface Antigen Negative (Negative); Hepatitis C Antibody Negative (Negative)
--- NOTE | 2025-06-16 11:16 | DVH ---
INDICATION: ruq . interval. inc LFTs TECHNIQUE: Multiple real-time sonographic images of the abdomen were obtained. COMPARISON: US LIVER on DOS: 06/14/25, CT CT AB PEL WO CON-NO ORAL OR IV on DOS: 06/14/25 FINDINGS: The liver is homogenous in echogenicity. The liver measures 15cm. No intrahepatic biliary ductal dilatation is noted. Trace right pleural effusion The gallbladder wall measures 0.1 cm and is unremarkable. No gallstones or sludge is seen. The commo n duct measures 0.5 cm and is unremarkable. No pericholecystic fluid is noted. The right kidney measures 10cm. No hydronephrosis. The pancreas is not well visualized due to obscuration from bowel gas. The visualized portions of the IVC and aorta are grossly unremarkable. IMPRESSION: Trace right pleural effusion
--- NOTE | 2025-06-16 11:52 | DVHPN2 ---
Subjective Patient continues to feel short of breath., seen at bedside today. Reviewed: H&P Changes from previous H/P or p: No Changes General: Per HPI Objective Vitals Vital Signs Date Time Temp Pulse Resp B/P (MAP) Pulse Ox O2 Delivery O2 Flow Rate FiO2 06/16/25 10:50 136/61 06/16/25 10:44 98 16 100 06/16/25 10:38 Nasal Cannula 3.0 06/16/25 10:38 32 06/16/25 09:00 97.8 97.8 Intake/Output Intake and Output 06/16/25 07:00 Intake Total 700 ml Balance 700 ml Intake Oral 550 ml IV Total 150 ml # Voids 6 Exam GEN: Healthy appearing, well-developed, NAD. HEENT: NC/AT; MMM. CV: Irregularly irregular, JVD present up to angle mandible LUNGS: Rales up to lower lobes bilaterally ABD: Soft, NT/ND, NBS, no masses or organomegaly. EXT: skin Warm, well perfused. no rashes. Lower extremity edema 1+ bilateral NEURO: Ambulating with no limitations. No focal deficits. Medications Current Medications Medications Dose Ordered Sig/Misti Route Start Time Stop Time Status Last Admin Dose Admin Pantoprazole Sodium 40 mg DAILY IV 06/15/25 10:00 06/16/25 09:35 40 MG Hydrochlorothiazide 50 mg DAILY PO 06/15/25 10:00 06/16/25 09:36 50 MG Acetaminophen/ Hydrocodone Bitart 1 tab Q4HP PRN PO 06/14/25 19:15 Ondansetron HCl 4 mg Q4HP PRN IV 06/14/25 19:15 Acetaminophen 650 mg Q6HP PRN PO 06/15/25 00:00 Nitroglycerin 0.4 mg Q5MINP PRN SL 06/14/25 19:15 Morphine Sulfate 2 mg Q30M PRN IV 06/14/25 19:15 Enoxaparin Sodium 100 mg Q12HR SC 06/15/25 22:00 06/16/25 09:38 100 MG Ceftriaxone Sodium 50 ml @ 100 mls/hr DAILY@09 IV 06/16/25 09:00 06/16/25 08:46 100 MLS/HR Losartan Potassium 25 mg DAILY PO 06/16/25 10:00 06/16/25 09:42 25 MG Metoprolol Succinate 50 mg DAILY PO 06/16/25 10:00 06/16/25 09:37 50 MG Ipratropium [place] 0.5 mg Q4HR NEB 06/15/25 18:00 06/16/25 10:41 0.5 MG Furosemide 40 mg DAILY IV 06/16/25 10:15 06/16/25 10:50 40 MG Laboratory Results Laboratory Tests 06/16/25 04:00 06/16/25 05:36 Chemistry Test 06/16/25 05:36 Albumin 3.5 g/dL (3.2-4.8) Calcium Level 8.6 mg/dL (8.7-10.4) L Total Protein 6.0 g/dL (5.7-8.2) Lipid panel Test 06/16/25 05:36 Lipase 32 U/L (12-53) LFT Test 06/16/25 05:36 Alanine Aminotransferase (ALT) 414 U/L (7-40) H Alkaline Phosphatase 200 U/L (46-116) H Aspartate Amino Transferase (AST) 426 U/L (13-40) H Total Bilirubin 2.0 mg/dL (0.2-1.0) H Urinalysis Test 06/14/25 21:40 Urine Color Yellow (Yellow) Urine Clarity Ex.turbid (Clear) Urine pH 5.5 (5.0-9.0) Urine Specific [place] 1.025 (1.001-1.035) Urine Protein Trace (Negative) H Urine Ketones Trace (Negative) Urine Blood Negative /uL (Negative) Urine Nitrite Negative (Negative) Urine Bilirubin 1+ (Negative) H Urine Urobilinogen 3 mg/dL (Negative) H Urine Leukocyte Esterase 2+ /uL (Negative) Urine RBC 2 /hpf (0 - 4) Urine Microscopic WBC 27 /HPF (0-5) H Urine Squamous Epithelial Cells Many /hpf (<5) Urine Amorphous Crystals Few /hpf (None Seen) Urine Bacteria Mod /hpf (None Seen) H Urine Mucus Few (None Seen) Urine Glucose Normal mg/dL (Normal) Microbiology Microbiology Date/Time Source Procedure Growth Status 06/15/25 10:50 Blood Blood Culture - Preliminary NO GROWTH AFTER 24 HOURS OF INCUBATION. Resulted Labs and/or images reviewed: Labs reviewed by me, Image(s) reviewed by me Assessment/Plan Assessment/Plan 75-year-old female w pmhx AFib, dyslipidemia, GERD, hypertension presents for evaluation of abdominal pain. Patient endorses a one day history of sharp abdominal pain across entire lower abdomen. Denies nausea or vomiting. No diarrhea. Reports having chills. Also patient was noted to be in AFib with RVR in the emergency department and started on Cardizem drip. Denies chest pain or palpitations. No shortness a breath. 06/15/2025: Patient here with AFib RVR, initially started on Cardizem drip, now discontinued by Cardiology, continuing beta aries. Patient has dyspnea on exertion, leg swelling orthopnea, rales, JVD, BNP elevated, CXR with pulmonary vascular congestion patient meeting [place] criteria for heart failure. Echo is pending to see if it is systolic versus diastolic. EF pending. Cardiology on board for AFib RVR. She was started on metoprolol 50 XL,. We will trial Lasix 41 time today. Continue patient on telemetry. Pending echo read. 06/16 - patient still has rales and improved pedal edema, we will continue Lasix 20 daily. She has no abdominal pain today, initially when she patient came in chief complaint was abdominal pain, which was resolved yesterday but today patient has significant elevation of transaminases, transaminitis present with hyperbilirubinemia, ALP elevated labs consistent with possible gallstone obstruction, we will repeat liver ultrasound today right upper quadrant ultrasound repeat today. 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 Diagnosis: AFib RVR CHF, acute , in exacerbation, diastolic dysfunction likely Morbid Obesity BMI 44.9 Acute abdominal pain, resolving, cholelithiasis ruleout Transaminitis, cholelithiasis rule out Hyperbilirubinemia ALP elevated Hypertension Plan: IV Lasix 20 qday Metoprolol XL 50 mg RN Atrovent q.6, as needed for shortness of breath, Stopped Cardizem drip Cardiology following, appreciate recommendations Continue other home medications Tele Full code Plan discussed with: Patient My Orders Orders - RIGOBERTO MCCONNELL MD Procedure Category Date Status Time Ipratropium Medneb PHA 06/15/25 In Process (Atrovent Medneb) 18:00 Abdomen Limited US 06/16/25 Resulted 10:06 Furosemide Injection PHA 06/16/25 In Process (Lasix Injection) 10:15 Date of Service: Jun 16, 2025 Billing Provider: RIGOBERTO MCCONNELL MD Common Visit Codes: [id number] INP/OBS CARE(HIGH) RIGOBERTO MCCONNELL MD Jun 16, 2025 11:51
--- NOTE | 2025-06-16 13:12 | DVHINCON2 ---
Date of service: Jun 16, 2025 History of Present Illness 75-year-old morbidly obese female complaining of sudden onset of bilateral upper quadrant abdominal pain without fevers, chills, nausea or vomiting. Patient denies any abdominal pain for the past couple of days. Past Medical History Morbid obesity. Atrial fibrillation. Past Surgical History Gastric bypass surgery. Appendectomy. Family History: FH: bladder cancer Family History Noncontributory Social History Reports drinking one glass of white wine per day. Denies any tobacco or IV drug use. Allergies: Coded Allergies: NO KNOWN ALLERGIES (Unverified , 02/26/20) Home Meds Reported Medications Atenolol (Atenolol) 50 Mg Tab, 50 MG PO DAILY for 30 Days, MG 06/15/25 Losartan Potassium (Losartan Potassium) 1 Pow Pow, 1 XX, POW 06/15/25 Trazodone HCl (Trazodone Hydrochloride) 50 Mg Tab, 50 MG PO, TAB 06/15/25 Current Medications Current Medications Medications (Trade) Dose Ordered Sig/Misti Route PRN Reason Start Time Stop Time Status Last Admin Enoxaparin Sodium (Lovenox) 100 mg Q12HR SC 06/15/25 22:00 06/16/25 09:38 Ceftriaxone Sodium 50 ml @ 100 mls/hr DAILY@09 IV 06/16/25 09:00 06/16/25 08:46 Losartan Potassium (Cozaar Tablet) 25 mg DAILY PO 06/16/25 10:00 06/16/25 09:42 Metoprolol Succinate (Toprol Xl) 50 mg DAILY PO 06/16/25 10:00 06/16/25 09:37 Ipratropium [place] (Atrovent Medneb) 0.5 mg Q4HR NEB 06/15/25 18:00 06/16/25 10:41 Furosemide (Lasix Injection) 40 mg DAILY IV 06/16/25 10:15 06/16/25 11:52 DC 06/16/25 10:50 Furosemide (Lasix Injection) 20 mg DAILY IV 06/17/25 10:00 Vital Signs Vital Signs Date Time Temp Pulse Resp B/P (MAP) Pulse Ox O2 Delivery O2 Flow Rate FiO2 06/16/25 10:50 136/61 06/16/25 10:44 98 16 100 06/16/25 10:38 Nasal Cannula 3.0 06/16/25 10:38 32 06/16/25 09:00 97.8 97.8 Physical Exam GEN: Age-appropriate obese female in no acute distress. Alert. HEENT: Normocephalic atraumatic. Moist mucous membranes. Anicteric sclerae. CV: Irregularly irregular Respiratory: CTAB ABD: Obese abdomen. Currently soft. Nontender nondistended. CT of the abdomen and pelvis: Gallbladder hydrops. Abdominal ultrasound: No gallstones. Normal common bile duct wall thickness. Common bile duct within normal limits. Labs/Diagnostic Data Labs Test 06/16/25 05:36 06/16/25 04:00 06/15/25 12:01 06/15/25 10:40 Range/Units Sodium Level 136 136-145 mmol/L Potassium Level 3.2 L 3.5-5.1 mmol/L Chloride Level 97 L 98-107 mmol/L Carbon Dioxide Level 29 20-31 mmol/L Anion Gap 10 5-15 Blood Urea Nitrogen 12 9-23 mg/dL Creatinine 1.13 H 0.550-1.02 mg/dL Glomerular Filtration Rate Calc 50 >90 mL/min BUN/Creatinine Ratio 10.6 10.0-20.0 Serum Glucose 99 74-106 mg/dL Calcium Level 8.6 L 8.7-10.4 mg/dL Total Bilirubin 2.0 H 0.2-1.0 mg/dL Aspartate Amino Transferase (AST) 426 H 13-40 U/L Alanine Aminotransferase (ALT) 414 H 7-40 U/L Alkaline Phosphatase 200 H 46-116 U/L Total Protein 6.0 5.7-8.2 g/dL Albumin 3.5 3.2-4.8 g/dL Lipase 32 12-53 U/L White Blood Count 10.9 #H 4.4-10.8 10^3/uL Red Blood Count 3.82 L 4.0-5.20 10^6/uL Hemoglobin 12.3 12.2-16.2 g/dL Hematocrit 36.6 36.0-46.0 % Mean Corpuscular Volume 95.8 80.0-100.0 fL Mean Corpuscular Hemoglobin 32.3 H 28.0-32.0 pg Mean Corpuscular Hemoglobin Concent 33.7 32.0-36.0 g/dL Red Cell Distribution Width 13.4 11.8-14.3 % Platelet Count 156 140-450 10^3/uL Mean Platelet Volume 7.7 6.9-10.8 fL Neutrophils (%) (Auto) 92.0 H 37.0-80.0 % Lymphocytes (%) (Auto) 3.2 L 10.0-50.0 % Monocytes (%) (Auto) 4.1 0.0-12.0 % Eosinophils (%) (Auto) 0.5 0.0-7.0 % Basophils (%) (Auto) 0.2 0.0-2.0 % Neutrophils # (Auto) 10.0 H 1.6-8.6 10 ^3/uL Lymphocytes # (Auto) 0.3 L 0.4-5.4 10 ^3/uL Monocytes # (Auto) 0.4 0-1.3 10 ^3/uL Eosinophils # (Auto) 0.1 0-0.8 10 ^3/uL Basophils # (Auto) 0 0-0.2 10 ^3/uL Nucleated Red Blood Cells 0.1 % Influenza Type A Antigen Negative Negative Influenza Type B Antigen Negative Negative SARS-CoV-2 Antigen (Rapid) Negative NEGATIVE Magnesium Level 1.7 1.6-2.6 mg/dL Triglycerides Level 68 < 150 mg/dL Cholesterol Level 125 < 200 mg/dL LDL Cholesterol 45 < 100 mg/dL HDL Cholesterol 61 H 40-59 mg/dL Thyroid Stimulating Hormone (TSH) 1.30 0.55-4.78 uIU/mL Test 06/15/25 04:46 06/14/25 21:40 06/14/25 16:34 06/14/25 15:45 Range/Units Hemoglobin A1c 5.2 <5.7 % A1C B-Type Natriuretic Peptide 259.21 0-100 pg/mL Plasma/Serum Blood Alcohol < 3.0 <10 mg/dL Urine Color Yellow Yellow Urine Clarity Ex.turbid Clear Urine pH 5.5 5.0-9.0 Urine Specific [place] 1.025 1.001-1.035 Urine Protein Trace H Negative Urine Ketones Trace Negative Urine Blood Negative Negative /uL Urine Nitrite Negative Negative Urine Bilirubin 1+ H Negative Urine Urobilinogen 3 H Negative mg/dL Urine Leukocyte Esterase 2+ Negative /uL Urine RBC 2 0 - 4 /hpf Urine Microscopic WBC 27 H 0-5 /HPF Urine Squamous Epithelial Cells Many <5 /hpf Urine Amorphous Crystals Few None Seen /hpf Urine Bacteria Mod H None Seen /hpf Urine Mucus Few None Seen Urine Glucose Normal Normal mg/dL Troponin I High Sensitivity 31 </=34 ng/L Hepatitis A IgM Antibody Negative Hepatitis B Surface Antigen Negative Negative Hepatitis B Core IgM Antibody Negative Negative Hepatitis C Antibody Negative Negative Lactic Acid Level 2.3 *H 0.4-2.0 mmol/L Microbiology Date/Time Source Procedure Growth Status 06/15/25 10:50 Blood Blood Culture - Preliminary NO GROWTH AFTER 24 HOURS OF INCUBATION. Resulted 06/15/25 10:13 Voided Urine Urine Culture - Preliminary Resulted Assessment 1. Resolved abdominal pain. No acute cholecystitis Plan/Recommendation 1. Low-fat diet. No indication for acute surgical intervention at this time. Plan discussed with: Patient ELKIN TOLEDO MD Jun 16, 2025 13:12
[2025-06-16] MEDS: ACETAMINOPHEN 325 MG TAB PO PRN (13:19)
--- NOTE | 2025-06-16 14:29 | ECG ---
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
--- NOTE | 2025-06-16 14:50 | DVHPN2 ---
Consult Progress Note Date Seen: Jun 16, 2025 Subjective Review of Systems: CVS:Normal, RESPIRATORY:Normal, NEURO:Normal Objective vital signs Vital Sign Date Time Temp Pulse Resp B/P (MAP) Pulse Ox O2 Delivery O2 Flow Rate FiO2 06/16/25 14:30 98 Nasal Cannula* 3 32 06/16/25 14:30 103 16 06/16/25 13:19 100.6 06/16/25 13:08 157/93 (114) Total Intake and Output 06/15/25 06/15/25 06/16/25 15:00 23:00 07:00 Intake Total 50 ml 450 ml 200 ml Balance 50 ml 450 ml 200 ml medications Current Medications Medications Dose Ordered Sig/Misti Route Start Time Stop Time Status Last Admin Dose Admin Pantoprazole Sodium 40 mg DAILY IV 06/15/25 10:00 06/16/25 09:35 40 MG Hydrochlorothiazide 50 mg DAILY PO 06/15/25 10:00 06/16/25 09:36 50 MG Acetaminophen/ Hydrocodone Bitart 1 tab Q4HP PRN PO 06/14/25 19:15 Ondansetron HCl 4 mg Q4HP PRN IV 06/14/25 19:15 Acetaminophen 650 mg Q6HP PRN PO 06/15/25 00:00 06/16/25 13:19 650 MG Nitroglycerin 0.4 mg Q5MINP PRN SL 06/14/25 19:15 Morphine Sulfate 2 mg Q30M PRN IV 06/14/25 19:15 Enoxaparin Sodium 100 mg Q12HR SC 06/15/25 22:00 06/16/25 09:38 100 MG Ceftriaxone Sodium 50 ml @ 100 mls/hr DAILY@09 IV 06/16/25 09:00 06/16/25 08:46 100 MLS/HR Losartan Potassium 25 mg DAILY PO 06/16/25 10:00 06/16/25 09:42 25 MG Metoprolol Succinate 50 mg DAILY PO 06/16/25 10:00 06/16/25 09:37 50 MG Ipratropium [place] 0.5 mg Q4HR NEB 06/15/25 18:00 06/16/25 14:27 0.5 MG Furosemide 20 mg DAILY IV 06/17/25 10:00 Examination: LUNGS:Abnormal (Diminished), CVS:Normal (A-fib controlled rate), NEURO:Normal laboratory and microbiology Laboratory Tests 06/16/25 05:36 06/16/25 04:00 Test 06/16/25 05:36 Range/Units Serum Glucose 99 74-106 mg/dL Problem List/Assessment/Plan Problem List/Assessment/Plan Sepsis with UTI Atrial fibrillation with rapid ventricular rate, Stage IIIb, now rate controlled (on Eliquis/Atenolol at home) Rule out structural heart disease Pulmonary hypertension, moderate to severe Hypertension Dyslipidemia [place] vs CKD Morbid obesity Plan/Recommendation (Dr. Chavira) Preliminary transthoracic echocardiogram revealed LV function optimal with RVSP at 58 mmHg. Continue beta-aries for rate control in addition to digoxin EOD. Transition from Eliquis therapy to therapeutic Lovenox given surgical consultation ([id number] Score 5 points, HAS-BLED Score 3 points). Avoid antiarrhythmic therapy given unknown onset of AFib. Replete electrolytes as necessary, K>4 and Mg >2. Monitor ECG changes closely and notify. Septic work-up per primary care team. Continue pyrexia control for rate control. Cardiac stable. There is no further cardiac work-up indicated at this time. Kindly call if in need of further recommendations. Thank you for allowing us to participate in this patient's care. Critical care time: 45 min. This medical document was created using an electronic medical record system with voice recognition software and computerized dictation system. Although this document has been carefully reviewed, there might still be some phonetic and typographical errors. Occasional wrong-word or ``sound-alike substitutions may have occurred due to the inherent limitations of voice recognition software. These areas are purely typographical due to imperfections of the software programs and do not reflect any compromise in the patient's medical care. Please read the chart carefully and recognize, using context, where these substitutions have occurred. Plan discussed with: Patient, Other Date of Service: Jun 16, 2025 Billing Provider: NUBIA BOSTON Cardiology Common Codes: [id number] HOSP CARE([facility] NUBIA BOSTON Jun 16, 2025 14:50
[2025-06-16] MEDS: MAGNESIUM SULFATE 1GM/100ML 100 ML IV ONE (15:31)
[2025-06-16] MEDS: POTASSIUM CHL 20 Meq TABLET PO ONE (15:32)
--- NOTE | 2025-06-16 19:31 | DVHSR ---
APPROVED REPORT EXAM: LIMITED Two-dimensional and M-mode echocardiogram with Doppler and color Doppler. Blood Pressure: 129/102 mmHg INDICATION Atrial Fibrillation W/ RVR RISK FACTORS Obesity: Height: 5', Weight: 229 DIMENSIONS LVDd4.8 (3.8-5.7cm)LA (2D)4.0 (1.9-4.0cm)Aortic Root2.8 (2.0-3.7cm) LVDs3.3 (2.5-4.0cm)LA (MM) (1.9-4.0cm)Aortic Cusp Exc1.7 (1.5-2.0cm) EF (%) 57.0 (55-70%)Rt. Atrium3.8 (1.9-4.0cm)Asc. Aorta cm IVSd1.1 (0.7-1.1cm)RV (D) (1.8-2.4cm) PWd1.0 (0.7-1.1cm) Mitral Valve MitralMitral Stenosis E wave1.10m/sMV Mean GR.mmHg E/A ratio0.02D MVAcm2 Aortic Valve Aortic ValveAortic Stenosis V10.70m/Jaylen Mean GR.4mmHg V21.30m/[place] GR.7mmHg LVOT Diameter2.3 (1.8-2.4cm)Doppler AVA2.24cm2 Pulmonic Valve V20.60m/s Tricuspid Valve TR Velocity3.60m/s [id number] Other Information Quality : Technically LimitedRhythm : Atrial Fibrillation Technically limited study due to body habitus. Conclusion REMARKABLY DLATED RV AND RA MAJOR HYPOKINESIS OF RV RVSP IS 58 MM OF HG AND IS VERY HIGH SEVERE PULMONARY HYPERTENSION SMALL LV CAVITY NORMAL VALVES NO EFFUSION
--- NOTE | 2025-06-16 22:24 | DVHPN2 ---
Consult Progress Note Date Seen: Jun 16, 2025 Subjective Review of Systems: CVS:Normal, RESPIRATORY:Normal, NEURO:Normal Other Systems: Patient was seen and evaluated in follow up. Patient reports abdominal pain is improving. Abdominal Ultrasound shows thickening of the gallbladder wall but no gallbladder distention and no stones. WBC 10.9, K 3.2, CL 97, MAINTENANCE AND OPERATIONS SUPERVISOR 1.13, AST 426, ALT 414. Telemetry reviewed. Objective vital signs Vital Sign Date Time Temp Pulse Resp B/P (MAP) Pulse Ox O2 Delivery O2 Flow Rate FiO2 06/16/25 14:30 98 Nasal Cannula* 3 32 06/16/25 14:30 103 16 06/16/25 13:19 100.6 06/16/25 13:08 157/93 (114) Total Intake and Output 06/15/25 06/15/25 06/16/25 15:00 23:00 07:00 Intake Total 50 ml 450 ml 200 ml Balance 50 ml 450 ml 200 ml medications Current Medications Medications Dose Ordered Sig/Misti Route Start Time Stop Time Status Last Admin Dose Admin Pantoprazole Sodium 40 mg DAILY IV 06/15/25 10:00 06/16/25 09:35 40 MG Hydrochlorothiazide 50 mg DAILY PO 06/15/25 10:00 06/16/25 09:36 50 MG Acetaminophen/ Hydrocodone Bitart 1 tab Q4HP PRN PO 06/14/25 19:15 Ondansetron HCl 4 mg Q4HP PRN IV 06/14/25 19:15 Acetaminophen 650 mg Q6HP PRN PO 06/15/25 00:00 06/16/25 13:19 650 MG Nitroglycerin 0.4 mg Q5MINP PRN SL 06/14/25 19:15 Morphine Sulfate 2 mg Q30M PRN IV 06/14/25 19:15 Enoxaparin Sodium 100 mg Q12HR SC 06/15/25 22:00 06/16/25 09:38 100 MG Ceftriaxone Sodium 50 ml @ 100 mls/hr DAILY@09 IV 06/16/25 09:00 06/16/25 08:46 100 MLS/HR Losartan Potassium 25 mg DAILY PO 06/16/25 10:00 06/16/25 09:42 25 MG Metoprolol Succinate 50 mg DAILY PO 06/16/25 10:00 06/16/25 09:37 50 MG Ipratropium [place] 0.5 mg Q4HR NEB 06/15/25 18:00 06/16/25 14:27 0.5 MG Furosemide 20 mg DAILY IV 06/17/25 10:00 Digoxin 0.125 mg EOD PO 06/17/25 10:00 UNV Examination: LUNGS:Abnormal (Diminished), CVS:Normal ((A-fib controlled rate), NEURO:Normal laboratory and microbiology Laboratory Tests 06/16/25 05:36 06/16/25 04:00 Test 06/16/25 05:36 Range/Units Serum Glucose 99 74-106 mg/dL Problem List/Assessment/Plan Problem List/Assessment/Plan Problem list Sepsis with UTI. Atrial fibrillation with rapid ventricular rate, Stage IIIb, now rate controlled (on Eliquis/Atenolol at home). Rule out structural heart disease. Pulmonary hypertension, moderate to severe. Hypertension. Dyslipidemia. [place] vs CKD. Morbid obesity. Plan/Recommendation Continued all current supportive medical care. Patient has been seen by Danielle Fuentes NP on my behalf, her and I discussed the plan with the patient. Preliminary transthoracic echocardiogram revealed LV function optimal with RVSP at 58 mmHg. Continue beta-aries for rate control in addition to digoxin EOD. Transition from Eliquis therapy to therapeutic Lovenox given surgical consultation ([id number] Score 5 points, HAS-BLED Score 3 points). Avoid antiarrhythmic therapy given unknown onset of AFib. Replete electrolytes as necessary, K>4 and Mg >2. Monitor ECG changes closely and notify. Septic work-up per primary care team. Continue pyrexia control for rate control. Cardiac stable. There is no further cardiac work-up indicated at this time. Additional plan as per the hospital course. Plan discussed with: Patient Date of Service: Jun 16, 2025 Billing Provider: AFIA CASPER MD Cardiology Common Codes: [id number] HOSP CARE(High AFIA CASPER MD Jun 16, 2025 15:02
[2025-06-17] VITALS (18 sets, daily range): BP systolic 114–133; BP diastolic 72–85; PULSE 88–116; RESP 16–20; TEMP 98–99.1; O2SAT 18–100
[2025-06-17 07:24] LABS: Hematocrit 38.6 % (36.0-46.0); Hemoglobin 13.5 g/dL (12.2-16.2); Mean Corpuscular Hemoglobin 32.9 pg (28.0-32.0); Mean Corpuscular Volume 94.2 fL (80.0-100.0); Nucleated Red Blood Cells % 0.0 %
[2025-06-17 07:45] LABS: Albumin 4.1 g/dL (3.2-4.8); Anion Gap 13 (5-15); BUN/Creatinine Ratio 11.0 (10.0-20.0); Blood Urea Nitrogen 11 mg/dL (9-23); Calcium 9.0 mg/dL (8.7-10.4); Carbon Dioxide 30 mmol/L (20-31); Glucose 88 mg/dL (74-106); Potassium 3.5 mmol/L (3.5-5.1); Total Protein 6.8 g/dL (5.7-8.2)
[2025-06-17 07:51] LABS: Alanine Aminotransferase 302 U/L (7-40); Alkaline Phosphatase 213 U/L (46-116); Bilirubin, Total 1.2 mg/dL (0.2-1.0); Chloride 92 mmol/L (98-107); Sodium 135 mmol/L (136-145)
[2025-06-17] MEDS: FUROSEMIDE 20 MG/2 ML VIAL IV SCH (09:35)
[2025-06-17] MEDS: DIGOXIN 0.125 MG TAB PO SCH (09:37)
--- NOTE | 2025-06-17 15:42 | DVHPN2 ---
Assessment/Plan Assessment/Plan progress note 75-year-old female w pmhx AFib, dyslipidemia, GERD, hypertension presents for evaluation of abdominal pain. Patient endorses a one day history of sharp abdominal pain across entire lower abdomen. Denies nausea or vomiting. No diarrhea. Reports having chills. Also patient was noted to be in AFib with RVR in the emergency department and started on Cardizem drip. Denies chest pain or palpitations. No shortness a breath. 06/15/2025: Patient here with AFib RVR, initially started on Cardizem drip, now discontinued by Cardiology, continuing beta aries. Patient has dyspnea on exertion, leg swelling orthopnea, rales, JVD, BNP elevated, CXR with pulmonary vascular congestion patient meeting [place] criteria for heart failure. Echo is pending to see if it is systolic versus diastolic. EF pending. Cardiology on board for AFib RVR. She was started on metoprolol 50 XL,. We will trial Lasix 41 time today. Continue patient on telemetry. Pending echo read. 06/16 - patient still has rales and improved pedal edema, we will continue Lasix 20 daily. She has no abdominal pain today, initially when she patient came in chief complaint was abdominal pain, which was resolved yesterday but today patient has significant elevation of transaminases, transaminitis present with hyperbilirubinemia, ALP elevated labs consistent with possible gallstone obstruction, we will repeat liver ultrasound today right upper quadrant ultrasound repeat today. 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 06/17 improved, discussed re pHTN and cpap, pt was using cpap in the past but does not like it. will benefit from o2 at night in the interim. sleep study OP f/u physical exam aox4 obese b/l crackles improved s1 s2 irregular abdomen soft le edema labs ekg imaging reviewed assessment and plan AFib RVR CHF, acute , in exacerbation, diastolic dysfunction likely Morbid Obesity BMI 44.9 Acute abdominal pain, resolving, cholelithiasis ruleout Transaminitis, cholelithiasis rule out Hyperbilirubinemia ALP elevated pHTN TORI Hypertension IV Lasix 20 qday Metoprolol XL 50 mg RN Atrovent q.6, as needed for shortness of breath, Stopped Cardizem drip Cardiology following, appreciate recommendations Continue other home medications deferring bipap at night c/w o2 sup diet reg dvt ppx lovenox full code Plan discussed with: Patient Date of Service: Jun 17, 2025 Billing Provider: LYLA IRIZARRY MD Common Visit Codes: [id number] INP/OBS CARE(HIGH) LYLA IRIZARRY MD Jun 17, 2025 15:42
--- NOTE | 2025-06-17 19:30 | DVHPN2 ---
Progress Note - Dictate Date Seen: Jun 17, 2025 Medical Necessity Reason Pt with a Central, PICC or Fol: No Subjective Patient was seen and evaluated in follow up. 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 AST 166, ALT 302. Echocardiogram shows LV EF of 57%. Telemetry reviewed. vital signs Vital Sign Date Time Temp Pulse Resp B/P (MAP) Pulse Ox O2 Delivery O2 Flow Rate FiO2 06/17/25 17:00 98.5 103 18 115/78 (90) 97 98.5 06/17/25 10:06 Nasal Cannula 2.0 06/17/25 10:06 28 Total Intake and Output 06/16/25 06/16/25 06/17/25 15:00 23:00 07:00 Intake Total 625 ml 300 ml Balance 625 ml 300 ml medications Current Medications Medications Dose Ordered Sig/Misti Route Start Time Stop Time Status Last Admin Dose Admin Pantoprazole Sodium 40 mg DAILY IV 06/15/25 10:00 06/17/25 09:34 40 MG Hydrochlorothiazide 50 mg DAILY PO 06/15/25 10:00 06/17/25 09:55 50 MG Acetaminophen/ Hydrocodone Bitart 1 tab Q4HP PRN PO 06/14/25 19:15 Ondansetron HCl 4 mg Q4HP PRN IV 06/14/25 19:15 Acetaminophen 650 mg Q6HP PRN PO 06/15/25 00:00 06/16/25 13:19 650 MG Nitroglycerin 0.4 mg Q5MINP PRN SL 06/14/25 19:15 Morphine Sulfate 2 mg Q30M PRN IV 06/14/25 19:15 Enoxaparin Sodium 100 mg Q12HR SC 06/15/25 22:00 06/17/25 09:36 100 MG Ceftriaxone Sodium 50 ml @ 100 mls/hr DAILY@09 IV 06/16/25 09:00 06/17/25 09:34 100 MLS/HR Losartan Potassium 25 mg DAILY PO 06/16/25 10:00 06/17/25 09:37 25 MG Metoprolol Succinate 50 mg DAILY PO 06/16/25 10:00 06/17/25 09:36 50 MG Ipratropium [place] 0.5 mg Q4HR NEB 06/15/25 18:00 06/17/25 14:18 0.5 MG Furosemide 20 mg DAILY IV 06/17/25 10:00 06/17/25 09:35 20 MG Digoxin 0.125 mg EOD PO 06/17/25 10:00 06/17/25 09:37 0.125 MG objective GENERAL: Alert and oriented x 3. No acute distress. Morbidly obese. EYES: PERRL, EOMI. Anicteric. HENT: Moist mucous membranes. LUNGS: Diminished bilateral breath sounds, expiratory wheezing. CARDIOVASCULAR: Irregular rate and rhythm. ABDOMEN: Soft, nontender and nondistended. EXTREMITIES: BLE non-pitting edema. NEUROLOGIC: No focal neurological deficits. SKIN: Warm, dry. laboratory and microbiology Laboratory Tests 06/17/25 06:42 Test 06/17/25 06:42 Range/Units Serum Glucose 88 74-106 mg/dL Problem List Sepsis with UTI. Atrial fibrillation with rapid ventricular rate, Stage IIIb, now rate controlled (on Eliquis/Atenolol at home). Rule out structural heart disease. Pulmonary hypertension, moderate to severe. Hypertension. Dyslipidemia. [place] vs CKD. Morbid obesity. Pulmonary HTN. Assessment/Plan Continued all current supportive medical care. Morphine and [place] for pain management. IV antibiotics as ordered. Digoxin. DVT and GI prophylactics. Diuretics with Lasix. Metoprolol. Losartan. Additional plan as per the hospital course. Dietary Evaluation Review Recommendations by RD: Dietary education by RD Comments: 1) Continue cardiac diet 2) Encourage optimal PO intake 3) Refer to outpatient RD for weight management 4) Follow-up with cardiology 5) Continue to monitor I&O, labs, and skin integrity Expected Outcomes/Goals: 1) appetite and labs to improve 2) gradual wt loss 3) f/u in 3-5 days Plan discussed with: Patient AFIA CASPER MD Jun 17, 2025 18:38
[2025-06-18] VITALS (19 sets, daily range): BP systolic 102–128; BP diastolic 72–82; PULSE 84–123; RESP 16–20; TEMP 97.8–98.4; O2SAT 94–100
[2025-06-18] MEDS: HYDROcodone-ACET 5/325MG TAB PO PRN (04:40)
[2025-06-18 07:50] LABS: Anion Gap 10 (5-15); Carbon Dioxide 30 mmol/L (20-31)
[2025-06-18 07:52] LABS: Calcium 9.0 mg/dL (8.7-10.4)
[2025-06-18 07:56] LABS: BUN/Creatinine Ratio 13.4 (10.0-20.0); Blood Urea Nitrogen 13 mg/dL (9-23); Glucose 85 mg/dL (74-106)
[2025-06-18 07:58] LABS: Chloride 91 mmol/L (98-107); Hematocrit 37.6 % (36.0-46.0); Hemoglobin 13.1 g/dL (12.2-16.2); Mean Corpuscular Hemoglobin 32.7 pg (28.0-32.0); Mean Corpuscular Volume 94.0 fL (80.0-100.0); Nucleated Red Blood Cells % 0.1 %; Potassium 3.4 mmol/L (3.5-5.1); Sodium 131 mmol/L (136-145)
--- NOTE | 2025-06-18 09:45 | DVHPN2 ---
Reviewed: H&P Changes from previous H/P or p: No Changes General: Per HPI Objective Vitals Vital Signs Date Time Temp Pulse Resp B/P (MAP) Pulse Ox O2 Delivery O2 Flow Rate FiO2 06/18/25 08:47 98.4 94 20 127/75 (92) 99 98.4 06/18/25 06:24 Nasal Cannula 2.0 06/18/25 06:24 28 Intake/Output Intake and Output 06/18/25 07:00 Intake Total 1810 ml Output Total 550 ml Balance 1260 ml Intake Oral 1760 ml IV Total 50 ml Output Urine Total 550 ml Medications Current Medications Medications Dose Ordered Sig/Misti Route Start Time Stop Time Status Last Admin Dose Admin Pantoprazole Sodium 40 mg DAILY IV 06/15/25 10:00 06/17/25 09:34 40 MG Hydrochlorothiazide 50 mg DAILY PO 06/15/25 10:00 06/17/25 09:55 50 MG Acetaminophen/ Hydrocodone Bitart 1 tab Q4HP PRN PO 06/14/25 19:15 06/18/25 04:40 1 TAB Ondansetron HCl 4 mg Q4HP PRN IV 06/14/25 19:15 Acetaminophen 650 mg Q6HP PRN PO 06/15/25 00:00 06/16/25 13:19 650 MG Nitroglycerin 0.4 mg Q5MINP PRN SL 06/14/25 19:15 Morphine Sulfate 2 mg Q30M PRN IV 06/14/25 19:15 Enoxaparin Sodium 100 mg Q12HR SC 06/15/25 22:00 06/17/25 21:54 100 MG Ceftriaxone Sodium 50 ml @ 100 mls/hr DAILY@09 IV 06/16/25 09:00 06/17/25 09:34 100 MLS/HR Losartan Potassium 25 mg DAILY PO 06/16/25 10:00 06/17/25 09:37 25 MG Metoprolol Succinate 50 mg DAILY PO 06/16/25 10:00 06/17/25 09:36 50 MG Ipratropium [place] 0.5 mg Q4HR NEB 06/15/25 18:00 06/18/25 09:04 0.5 MG Furosemide 20 mg DAILY IV 06/17/25 10:00 06/17/25 09:35 20 MG Digoxin 0.125 mg EOD PO 06/17/25 10:00 06/17/25 09:37 0.125 MG Laboratory Results Laboratory Tests 06/18/25 06:15 Chemistry Test 06/18/25 06:15 Calcium Level 9.0 mg/dL (8.7-10.4) Urinalysis Test 06/14/25 21:40 Urine Color Yellow (Yellow) Urine Clarity Ex.turbid (Clear) Urine pH 5.5 (5.0-9.0) Urine Specific [place] 1.025 (1.001-1.035) Urine Protein Trace (Negative) H Urine Ketones Trace (Negative) Urine Blood Negative /uL (Negative) Urine Nitrite Negative (Negative) Urine Bilirubin 1+ (Negative) H Urine Urobilinogen 3 mg/dL (Negative) H Urine Leukocyte Esterase 2+ /uL (Negative) Urine RBC 2 /hpf (0 - 4) Urine Microscopic WBC 27 /HPF (0-5) H Urine Squamous Epithelial Cells Many /hpf (<5) Urine Amorphous Crystals Few /hpf (None Seen) Urine Bacteria Mod /hpf (None Seen) H Urine Mucus Few (None Seen) Urine Glucose Normal mg/dL (Normal) Microbiology Microbiology Date/Time Source Procedure Growth Status 06/15/25 10:50 Blood Blood Culture - Preliminary NO GROWTH AFTER 48 HOURS OF INCUBATION. Resulted 06/15/25 10:13 Voided Urine Urine Culture - Final Complete Labs and/or images reviewed: Labs reviewed by me, Image(s) reviewed by me Assessment/Plan Assessment/Plan Covering for Dr Aylin Burch RVR CHF, acute , in exacerbation, diastolic dysfunction likely Morbid Obesity BMI 44.9 Acute abdominal pain, resolving, cholelithiasis ruled out Transaminitis, cholelithiasis rule out Hyperbilirubinemia ALP elevated pHTN TORI Hypertension Hypomagnesemia magnesium 1.7 ordered magnesium 2 g IV Continue Current management Viola Deluca at bedside Plan discussed with: Patient Date of Service: Jun 18, 2025 Billing Provider: BUCKY WILLS MD Common Visit Codes: [id number] INP/OBS CARE(HIGH) BUCKY WILLS MD Jun 18, 2025 09:45
[2025-06-18] MEDS: POTASSIUM EFFERVESENT TAB 25 MEQ PO ONE (10:15)
[2025-06-18] MEDS: MAGNESIUM SULFATE 1GM/100ML 100 ML IV SCH (11:00)
[2025-06-18] MEDS: MAGNESIUM SULFATE 1GM/100ML 100 ML IV ONE (16:37)
[2025-06-18] MEDS: MAGNESIUM SULFATE 1GM/100ML 200 ML IV ONE (16:38)
--- NOTE | 2025-06-18 21:39 | DVHPN2 ---
Progress Note - Dictate Date Seen: Jun 18, 2025 Medical Necessity Reason Pt with a Central, PICC or Fol: No Subjective Patient was seen and evaluated in follow up. Patient's is present at bedside. K 3.4, CL 91. Telemetry reviewed. vital signs Vital Sign Date Time Temp Pulse Resp B/P (MAP) Pulse Ox O2 Delivery O2 Flow Rate FiO2 06/18/25 10:14 94 127/75 06/18/25 09:10 18 99 06/18/25 09:04 Nasal Cannula 2.0 06/18/25 09:04 28 06/18/25 08:47 98.4 98.4 Total Intake and Output 06/17/25 06/17/25 06/18/25 15:00 23:00 07:00 Intake Total 410 ml 800 ml 600 ml Output Total 550 ml Balance 410 ml 250 ml 600 ml medications Current Medications Medications Dose Ordered Sig/Misti Route Start Time Stop Time Status Last Admin Dose Admin Pantoprazole Sodium 40 mg DAILY IV 06/15/25 10:00 06/18/25 10:13 40 MG Hydrochlorothiazide 50 mg DAILY PO 06/15/25 10:00 06/18/25 10:13 50 MG Acetaminophen/ Hydrocodone Bitart 1 tab Q4HP PRN PO 06/14/25 19:15 06/18/25 04:40 1 TAB Ondansetron HCl 4 mg Q4HP PRN IV 06/14/25 19:15 Acetaminophen 650 mg Q6HP PRN PO 06/15/25 00:00 06/16/25 13:19 650 MG Nitroglycerin 0.4 mg Q5MINP PRN SL 06/14/25 19:15 Morphine Sulfate 2 mg Q30M PRN IV 06/14/25 19:15 Enoxaparin Sodium 100 mg Q12HR SC 06/15/25 22:00 06/18/25 10:13 100 MG Ceftriaxone Sodium 50 ml @ 100 mls/hr DAILY@09 IV 06/16/25 09:00 06/18/25 10:13 100 MLS/HR Losartan Potassium 25 mg DAILY PO 06/16/25 10:00 06/18/25 10:14 25 MG Metoprolol Succinate 50 mg DAILY PO 06/16/25 10:00 06/18/25 10:14 50 MG Ipratropium [place] 0.5 mg Q4HR NEB 06/15/25 18:00 06/18/25 09:04 0.5 MG Furosemide 20 mg DAILY IV 06/17/25 10:00 06/17/25 09:35 20 MG Digoxin 0.125 mg EOD PO 06/17/25 10:00 06/17/25 09:37 0.125 MG objective GENERAL: Alert and oriented x 3. No acute distress. Morbidly obese. EYES: PERRL, EOMI. Anicteric. HENT: Moist mucous membranes. LUNGS: Diminished bilateral breath sounds, expiratory wheezing. CARDIOVASCULAR: Irregular rate and rhythm. ABDOMEN: Soft, nontender and nondistended. EXTREMITIES: BLE non-pitting edema. NEUROLOGIC: No focal neurological deficits. SKIN: Warm, dry. laboratory and microbiology Laboratory Tests 06/18/25 06:15 Test 06/18/25 06:15 Range/Units Serum Glucose 85 74-106 mg/dL Problem List Sepsis with UTI. Atrial fibrillation with rapid ventricular rate, Stage IIIb, now rate controlled (on Eliquis/Atenolol at home). Rule out structural heart disease. Pulmonary hypertension, moderate to severe. Hypertension. Dyslipidemia. [place] vs CKD. Morbid obesity. Pulmonary HTN. Assessment/Plan Continued all current supportive medical care. Morphine and [place] for pain management. IV antibiotics as ordered. DVT and GI prophylactics. Metoprolol. Losartan. Additional plan as per the hospital course. Dietary Evaluation Review Recommendations by RD: Dietary education by RD Comments: 1) Continue cardiac diet 2) Encourage optimal PO intake 3) Refer to outpatient RD for weight management 4) Follow-up with cardiology 5) Continue to monitor I&O, labs, and skin integrity Expected Outcomes/Goals: 1) appetite and labs to improve 2) gradual wt loss 3) f/u in 3-5 days Plan discussed with: Patient AFIA CASPER MD Jun 18, 2025 13:36
[2025-06-19] VITALS (20 sets, daily range): BP systolic 99–135; BP diastolic 56–93; PULSE 75–116; RESP 14–22; TEMP 97.5–98.8; O2SAT 95–100
[2025-06-19 11:15] LABS: Hematocrit 42.1 % (36.0-46.0); Hemoglobin 14.3 g/dL (12.2-16.2); Mean Corpuscular Hemoglobin 32.2 pg (28.0-32.0); Mean Corpuscular Volume 94.5 fL (80.0-100.0); Nucleated Red Blood Cells % 0.1 %
[2025-06-19 11:32] LABS: Albumin 4.3 g/dL (3.2-4.8); Anion Gap 11 (5-15); BUN/Creatinine Ratio 10.6 (10.0-20.0); Bilirubin, Total 0.7 mg/dL (0.2-1.0); Blood Urea Nitrogen 10 mg/dL (9-23); Calcium 9.4 mg/dL (8.7-10.4); Glucose 104 mg/dL (74-106); Total Protein 7.4 g/dL (5.7-8.2)
[2025-06-19 11:33] LABS: Alanine Aminotransferase 188 U/L (7-40); Alkaline Phosphatase 186 U/L (46-116); Carbon Dioxide 34 mmol/L (20-31); Chloride 89 mmol/L (98-107); Potassium 3.1 mmol/L (3.5-5.1); Sodium 134 mmol/L (136-145)
--- NOTE | 2025-06-19 13:12 | DVHPN2 ---
Progress Note Date Seen: Jun 19, 2025 Resident Creating Document: MAGALY QUINTANA RESIDENT Medical Necessity Reason Pt with a Central, PICC or Fol: No Subjective Review of Systems Patient seen and examined at bedside Denies any abdominal pain Denies any nausea or vomiting Last bowel movement 06/19/2025 soft Downtrending liver function tests Objective vital signs Vital Sign Date Time Temp Pulse Resp B/P (MAP) Pulse Ox O2 Delivery O2 Flow Rate FiO2 06/19/25 13:00 97.9 102 18 99/56 (70) 97 97.9 06/19/25 08:00 Nasal Cannula* 2 28 Total Intake and Output 06/18/25 06/18/25 06/19/25 15:00 23:00 07:00 Intake Total 740 ml 400 ml Output Total 650 ml Balance 90 ml 400 ml medications Current Medications Medications Dose Ordered Sig/Misti Route Start Time Stop Time Status Last Admin Dose Admin Pantoprazole Sodium 40 mg DAILY IV 06/15/25 10:00 06/19/25 09:28 40 MG Hydrochlorothiazide 50 mg DAILY PO 06/15/25 10:00 06/19/25 09:32 50 MG Acetaminophen/ Hydrocodone Bitart 1 tab Q4HP PRN PO 06/14/25 19:15 06/18/25 22:25 1 TAB Ondansetron HCl 4 mg Q4HP PRN IV 06/14/25 19:15 Acetaminophen 650 mg Q6HP PRN PO 06/15/25 00:00 06/16/25 13:19 650 MG Nitroglycerin 0.4 mg Q5MINP PRN SL 06/14/25 19:15 Morphine Sulfate 2 mg Q30M PRN IV 06/14/25 19:15 Enoxaparin Sodium 100 mg Q12HR SC 06/15/25 22:00 06/19/25 09:29 100 MG Ceftriaxone Sodium 50 ml @ 100 mls/hr DAILY@09 IV 06/16/25 09:00 06/19/25 09:28 100 MLS/HR Losartan Potassium 25 mg DAILY PO 06/16/25 10:00 06/19/25 09:29 25 MG Metoprolol Succinate 50 mg DAILY PO 06/16/25 10:00 06/19/25 09:30 50 MG Ipratropium [place] 0.5 mg Q4HR NEB 06/15/25 18:00 06/19/25 10:17 0.5 MG Furosemide 20 mg DAILY IV 06/17/25 10:00 06/19/25 09:28 20 MG Digoxin 0.125 mg EOD PO 06/17/25 10:00 06/19/25 09:30 0.125 MG Examination General Appearance: Cooperative. Well developed. Well nourished. NAD Pulmonary/Respiratory: Equal bilateral air entry Cardiovascular/Chest: Tachycardia Abdominal Exam: Normal bowel sounds. Soft. normal abdomen, no visible veins, Nontender. No hepatospenomegaly. No masses Neuro/Mental Status: A&O x4. Coherent. Thoughts/Psych: Normal thought pattern. Appropriate mood and affect. Good judgement and insight Skin Exam: Normal inspection. Normal color. Warm. Dry laboratory and microbiology Laboratory Tests 06/19/25 10:48 Test 06/19/25 10:48 Range/Units Serum Glucose 104 74-106 mg/dL Microbiology Date/Time Source Procedure Growth Status 06/15/25 10:50 Blood Blood Culture - Preliminary NO GROWTH AFTER 72 HOURS OF INCUBATION. Resulted 06/15/25 10:13 Voided Urine Urine Culture - Final Complete Labs and/or images reviewed: Labs reviewed by me, Image(s) reviewed by me Problem List/Assessment/Plan Problem List/Assessment/Plan Acute intractable abdominal pain, now resolved Transaminitis Atrial fibrillation with RVR Gallbladder hydrops Questionable acalculous cholecystitis Morbid obesity Diverticulosis without diverticulitis Plan: Liver ultrasound: Diffusely echogenic liver which can be secondary to steatosis another diffuse hepatic process. CT abdomen pelvis: Gallbladder hydrops. Mild sigmoid diverticulosis. Negative hepatitis panel Ordered serum ferritin, serum VINNIE Consider HIDA scan and/or MRCP Clear liquid diet IV Protonix IV antibiotics Thank you so much for the opportunity to consult on your patient. GI team will follow the patient. In case of any questions or concerns please feel free to reach out. Plan discussed with Dr. Weiss Plan discussed with: Patient, Other (RN) Dietary Evaluation Review Recommendations by RD: Dietary education by RD Comments: 1) Continue cardiac diet 2) Encourage optimal PO intake 3) Refer to outpatient RD for weight management 4) Follow-up with cardiology 5) Continue to monitor I&O, labs, and skin integrity Expected Outcomes/Goals: 1) appetite and labs to improve 2) gradual wt loss 3) f/u in 3-5 days MAGALY QUINTANA RESIDENT Jun 19, 2025 13:12
[2025-06-19] MEDS: FUROSEMIDE 20 MG/2 ML VIAL IV ONE (14:15)
--- NOTE | 2025-06-19 14:31 | ECG ---
[facility] Test Date: 2025-06-17 Test Time: 00:23:18 Pat Name: ISIAH GAONA Department: Respiratoy Room: 0249T B Gender: F Physician Specialist: AT : 1950 Requested By: BUCKY WILLS Order Number: [id number] Reading MD: Yoan Aguila Measurements Intervals [place] Rate: 111 P: 0 SD: 0 QRS: -46 QRSD: 89 T: 145 QT: 380 QTc: 517 Interpretive Statements Atrial fibrillation Left anterior fascicular block Low voltage, precordial leads Abnormal R-wave progression, late transition Nonspecific repol abnormality, lateral leads Electronically Signed On 06-22-2025 21:04:32 PDT by Yoan Aguila Please click the below link to view image of tracing.
--- NOTE | 2025-06-19 16:10 | DVHPN2 ---
Subjective Patient continues to feel short of breath., seen at bedside today. Reviewed: H&P Changes from previous H/P or p: No Changes General: Per HPI Objective Vitals Vital Signs Date Time Temp Pulse Resp B/P (MAP) Pulse Ox O2 Delivery O2 Flow Rate FiO2 06/19/25 14:20 98 14 100 06/19/25 14:15 99/56 06/19/25 13:00 97.9 97.9 06/19/25 08:00 Nasal Cannula* 2 28 Intake/Output Intake and Output 06/19/25 06:59 Intake Total 1140 ml Output Total 650 ml Balance 490 ml Intake Oral 1140 ml Output Urine Total 650 ml # Voids 3 Exam GEN: Healthy appearing, well-developed, NAD. HEENT: NC/AT; MMM. CV: Irregularly irregular, JVD present up to angle mandible LUNGS: Rales up to lower lobes bilaterally ABD: Soft, NT/ND, NBS, no masses or organomegaly. EXT: skin Warm, well perfused. no rashes. Lower extremity edema 1+ bilateral NEURO: Ambulating with no limitations. No focal deficits. Medications Current Medications Medications Dose Ordered Sig/Misti Route Start Time Stop Time Status Last Admin Dose Admin Pantoprazole Sodium 40 mg DAILY IV 06/15/25 10:00 06/19/25 09:28 40 MG Hydrochlorothiazide 50 mg DAILY PO 06/15/25 10:00 06/19/25 09:32 50 MG Acetaminophen/ Hydrocodone Bitart 1 tab Q4HP PRN PO 06/14/25 19:15 06/18/25 22:25 1 TAB Ondansetron HCl 4 mg Q4HP PRN IV 06/14/25 19:15 Acetaminophen 650 mg Q6HP PRN PO 06/15/25 00:00 06/16/25 13:19 650 MG Nitroglycerin 0.4 mg Q5MINP PRN SL 06/14/25 19:15 Morphine Sulfate 2 mg Q30M PRN IV 06/14/25 19:15 Enoxaparin Sodium 100 mg Q12HR SC 06/15/25 22:00 06/19/25 09:29 100 MG Ceftriaxone Sodium 50 ml @ 100 mls/hr DAILY@09 IV 06/16/25 09:00 06/19/25 09:28 100 MLS/HR Losartan Potassium 25 mg DAILY PO 06/16/25 10:00 06/19/25 09:29 25 MG Metoprolol Succinate 50 mg DAILY PO 06/16/25 10:00 06/19/25 09:30 50 MG Ipratropium [place] 0.5 mg Q4HR NEB 06/15/25 18:00 06/19/25 14:12 0.5 MG Furosemide 20 mg DAILY IV 06/17/25 10:00 06/19/25 09:28 20 MG Digoxin 0.125 mg EOD PO 06/17/25 10:00 06/19/25 09:30 0.125 MG Laboratory Results Laboratory Tests 06/19/25 10:48 Chemistry Test 06/19/25 10:48 Albumin 4.3 g/dL (3.2-4.8) Calcium Level 9.4 mg/dL (8.7-10.4) Total Protein 7.4 g/dL (5.7-8.2) LFT Test 06/19/25 10:48 Alanine Aminotransferase (ALT) 188 U/L (7-40) H Alkaline Phosphatase 186 U/L (46-116) H Aspartate Amino Transferase (AST) 99 U/L (13-40) H Total Bilirubin 0.7 mg/dL (0.2-1.0) Urinalysis Test 06/14/25 21:40 Urine Color Yellow (Yellow) Urine Clarity Ex.turbid (Clear) Urine pH 5.5 (5.0-9.0) Urine Specific [place] 1.025 (1.001-1.035) Urine Protein Trace (Negative) H Urine Ketones Trace (Negative) Urine Blood Negative /uL (Negative) Urine Nitrite Negative (Negative) Urine Bilirubin 1+ (Negative) H Urine Urobilinogen 3 mg/dL (Negative) H Urine Leukocyte Esterase 2+ /uL (Negative) Urine RBC 2 /hpf (0 - 4) Urine Microscopic WBC 27 /HPF (0-5) H Urine Squamous Epithelial Cells Many /hpf (<5) Urine Amorphous Crystals Few /hpf (None Seen) Urine Bacteria Mod /hpf (None Seen) H Urine Mucus Few (None Seen) Urine Glucose Normal mg/dL (Normal) Microbiology Microbiology Date/Time Source Procedure Growth Status 06/15/25 10:50 Blood Blood Culture - Preliminary NO GROWTH AFTER 72 HOURS OF INCUBATION. Resulted 06/15/25 10:13 Voided Urine Urine Culture - Final Complete Labs and/or images reviewed: Labs reviewed by me, Image(s) reviewed by me Assessment/Plan Assessment/Plan 75-year-old female w pmhx AFib, dyslipidemia, GERD, hypertension presents for evaluation of abdominal pain. Patient endorses a one day history of sharp abdominal pain across entire lower abdomen. Denies nausea or vomiting. No diarrhea. Reports having chills. Also patient was noted to be in AFib with RVR in the emergency department and started on Cardizem drip. Denies chest pain or palpitations. No shortness a breath. 06/15/2025: Patient here with AFib RVR, initially started on Cardizem drip, now discontinued by Cardiology, continuing beta aries. Patient has dyspnea on exertion, leg swelling orthopnea, rales, JVD, BNP elevated, CXR with pulmonary vascular congestion patient meeting [place] criteria for heart failure. Echo is pending to see if it is systolic versus diastolic. EF pending. Cardiology on board for AFib RVR. She was started on metoprolol 50 XL,. We will trial Lasix 41 time today. Continue patient on telemetry. Pending echo read. 06/16 - patient still has rales and improved pedal edema, we will continue Lasix 20 daily. She has no abdominal pain today, initially when she patient came in chief complaint was abdominal pain, which was resolved yesterday but today patient has significant elevation of transaminases, transaminitis present with hyperbilirubinemia, ALP elevated labs consistent with possible gallstone obstruction, we will repeat liver ultrasound today right upper quadrant ultrasound repeat today. I am concerned for cholelithiasis as secondary issue with the primary issues of AFib RVR and CHF, echo is pending to be read casing running machine tender notified. 06/19: Continuing to improve numbers for liver, improving rales in pitting edema with diuresis. We will increase diuresis to 40 daily Lasix. Heart rate controlled with metoprolol and dig, over weekend echo showed severe pulmonary hypertension, which could be possible uncontrolled sleep apnea, patient needs outpatient sleep study. Weight loss also discuss with patient and patient's discuss options with PCP. Patient needs 1 more day of diuresis in 1 PT eval. Patient also remains on oxygen we will need to evaluate for oxygen today. Continue CPAP at night 5 cm H2O Diagnosis: AFib RVR CHF, acute , in exacerbation, diastolic dysfunction likely Morbid Obesity BMI 44.9 Acute abdominal pain, resolving, cholelithiasis ruleout Transaminitis, cholelithiasis rule out Hyperbilirubinemia ALP elevated Hypertension Plan: IV Lasix 20 qday Metoprolol XL 50 mg RN Atrovent q.6, as needed for shortness of breath, Stopped Cardizem drip Cardiology following, appreciate recommendations Continue other home medications Tele Full code Plan discussed with: Patient My Orders Orders - RIGOBERTO MCCONNELL MD Procedure Category Date Status Time Pt Request For Service PT 06/19/25 Logged 11:27 Furosemide Injection PHA 06/20/25 Transmitted (Lasix Injection) 10:00 Date of Service: Jun 19, 2025 Billing Provider: RIGOBERTO MCCONNELL MD Common Visit Codes: [id number] INP/OBS CARE(HIGH) RIGOBERTO MCCONNELL MD Jun 19, 2025 16:10
[2025-06-19 16:50] LABS: Base Excess 11.9 mmol/L (-2.0-3.0)
[2025-06-19 16:53] LABS: Iron 43.0 ug/dL (50-170); Total Iron Binding Capacity 242.0 ug/dL (250-425)
--- NOTE | 2025-06-19 19:48 | DVHPN2 ---
Progress Note - Dictate Date Seen: Jun 19, 2025 Medical Necessity Reason Pt with a Central, PICC or Fol: No Subjective Patient was seen and evaluated in follow up. Patient is resting in bed. She denies any complaints. Patient had a soft BM today. LFTs are down trending. WBC 12.7. K 3.1, CO2 34. Telemetry reviewed. vital signs Vital Sign Date Time Temp Pulse Resp B/P (MAP) Pulse Ox O2 Delivery O2 Flow Rate FiO2 06/19/25 18:21 99 20 99 06/19/25 18:15 Nasal Cannula 2.0 06/19/25 18:15 28 06/19/25 17:00 98.0 132/77 (95) 98.0 Total Intake and Output 06/18/25 06/18/25 06/19/25 15:00 23:00 07:00 Intake Total 740 ml 400 ml Output Total 650 ml Balance 90 ml 400 ml medications Current Medications Medications Dose Ordered Sig/Misti Route Start Time Stop Time Status Last Admin Dose Admin Pantoprazole Sodium 40 mg DAILY IV 06/15/25 10:00 06/19/25 09:28 40 MG Hydrochlorothiazide 50 mg DAILY PO 06/15/25 10:00 06/19/25 09:32 50 MG Acetaminophen/ Hydrocodone Bitart 1 tab Q4HP PRN PO 06/14/25 19:15 06/18/25 22:25 1 TAB Ondansetron HCl 4 mg Q4HP PRN IV 06/14/25 19:15 Acetaminophen 650 mg Q6HP PRN PO 06/15/25 00:00 06/16/25 13:19 650 MG Nitroglycerin 0.4 mg Q5MINP PRN SL 06/14/25 19:15 Morphine Sulfate 2 mg Q30M PRN IV 06/14/25 19:15 Enoxaparin Sodium 100 mg Q12HR SC 06/15/25 22:00 06/19/25 09:29 100 MG Ceftriaxone Sodium 50 ml @ 100 mls/hr DAILY@09 IV 06/16/25 09:00 06/19/25 09:28 100 MLS/HR Losartan Potassium 25 mg DAILY PO 06/16/25 10:00 06/19/25 09:29 25 MG Metoprolol Succinate 50 mg DAILY PO 06/16/25 10:00 06/19/25 09:30 50 MG Ipratropium [place] 0.5 mg Q4HR NEB 06/15/25 18:00 06/19/25 18:15 0.5 MG Digoxin 0.125 mg EOD PO 06/17/25 10:00 06/19/25 09:30 0.125 MG Furosemide 40 mg DAILY IV 06/20/25 10:00 objective GENERAL: Alert and oriented x 3. No acute distress. Morbidly obese. EYES: PERRL, EOMI. Anicteric. HENT: Moist mucous membranes. LUNGS: Diminished bilateral breath sounds, expiratory wheezing. CARDIOVASCULAR: Irregular rate and rhythm. ABDOMEN: Soft, nontender and nondistended. EXTREMITIES: BLE non-pitting edema. NEUROLOGIC: No focal neurological deficits. SKIN: Warm, dry. laboratory and microbiology Laboratory Tests 06/19/25 10:48 Test 06/19/25 10:48 Range/Units Serum Glucose 104 74-106 mg/dL Problem List Sepsis with UTI. Atrial fibrillation with rapid ventricular rate, Stage IIIb, now rate controlled (on Eliquis/Atenolol at home). Rule out structural heart disease. Pulmonary hypertension, moderate to severe. Hypertension. Dyslipidemia. [place] vs CKD. Morbid obesity. Pulmonary HTN. Assessment/Plan Continued all current supportive medical care. Morphine and [place] for pain management. IV antibiotics as ordered. DVT and GI prophylactics. Metoprolol. Losartan. Additional plan as per the hospital course. Dietary Evaluation Review Recommendations by RD: Dietary education by RD Comments: 1) Continue cardiac diet 2) Encourage optimal PO intake 3) Refer to outpatient RD for weight management 4) Follow-up with cardiology 5) Continue to monitor I&O, labs, and skin integrity Expected Outcomes/Goals: 1) appetite and labs to improve 2) gradual wt loss 3) f/u in 3-5 days Plan discussed with: Patient AFIA CASPER MD Jun 19, 2025 19:48
[2025-06-20] VITALS (11 sets, daily range): BP systolic 102–117; BP diastolic 64–84; PULSE 85–118; RESP 16–19; TEMP 97–99.2; O2SAT 96–100
[2025-06-20 06:58] LABS: Albumin 4.1 g/dL (3.2-4.8); Anion Gap 11 (5-15); BUN/Creatinine Ratio 11.9 (10.0-20.0); Bilirubin, Total 0.8 mg/dL (0.2-1.0); Blood Urea Nitrogen 12 mg/dL (9-23); Calcium 9.1 mg/dL (8.7-10.4); Glucose 99 mg/dL (74-106); Total Protein 6.9 g/dL (5.7-8.2)
[2025-06-20 07:00] LABS: Alanine Aminotransferase 160 U/L (7-40); Alkaline Phosphatase 174 U/L (46-116); Carbon Dioxide 32 mmol/L (20-31); Chloride 91 mmol/L (98-107); Potassium 3.0 mmol/L (3.5-5.1); Sodium 134 mmol/L (136-145)
[2025-06-20] MEDS: FUROSEMIDE 40 MG/4 ML VIAL IV SCH (09:36)
--- NOTE | 2025-06-20 10:10 | DVHDS2 ---
Discharge Summary Date of Admission Jun 14, 2025 at 19:01 Date of Discharge: Jun 20, 2025 Labs/Diagnostic Data: Laboratory Results Test 06/20/25 06:12 06/19/25 16:45 06/19/25 16:39 06/19/25 10:48 Sodium Level 134 mmol/L (136-145) Potassium Level 3.0 mmol/L (3.5-5.1) Chloride Level 91 mmol/L (98-107) Carbon Dioxide Level 32 mmol/L (20-31) Anion Gap 11 (5-15) Blood Urea Nitrogen 12 mg/dL (9-23) Creatinine 1.01 mg/dL (0.550-1.02) Glomerular Filtration Rate Calc 57 mL/min (>90) BUN/Creatinine Ratio 11.9 (10.0-20.0) Serum Glucose 99 mg/dL (74-106) Calcium Level 9.1 mg/dL (8.7-10.4) Total Bilirubin 0.8 mg/dL (0.2-1.0) Aspartate Amino Transferase (AST) 101 U/L (13-40) Alanine Aminotransferase (ALT) 160 U/L (7-40) Alkaline Phosphatase 174 U/L (46-116) Total Protein 6.9 g/dL (5.7-8.2) Albumin 4.1 g/dL (3.2-4.8) Blood Gas Specimen Type Arterial Blood Gas Sample Site Right radial Blood Gas Patient Temperature 37.0 Arterial Blood Date Drawn [id number] Arterial Blood pH 7.535 (7.350-7.450) Arterial Blood Partial Pressure CO2 43.5 mmHg (32.0-45.0) Arterial Blood Partial Pressure O2 48.2 mmHg (83.0-108.0) Arterial Blood HCO3 35.9 mmol/L (21.0-28.0) Arterial Blood Oxygen Saturation 88.3 % (94.0-98.0) Arterial Blood Base Excess 11.9 mmol/L (-2.0-3.0) Arterial Blood Oxyhemoglobin 86.8 % (94.0-98.0) Arterial Blood Carboxyhemoglobin 1.1 % (0.5-1.5) Arterial Blood Methemoglobin 0.6 % (0.0-1.5) Eddie Test Yes Blood Gas Total Hemoglobin 15.30 g/dL (12.0-16.0) Blood Gas Modality Room air FiO2 % 21.0 Blood Gas Critical Value Read Back Yes Blood Gas Notified Whom Dr. suarez Blood Gas Notified Time [id number] Blood Gas Notified By Marcos renee rrt White Blood Count 12.7 10^3/uL (4.4-10.8) Red Blood Count 4.46 10^6/uL (4.0-5.20) Hemoglobin 14.3 g/dL (12.2-16.2) Hematocrit 42.1 % (36.0-46.0) Mean Corpuscular Volume 94.5 fL (80.0-100.0) Mean Corpuscular Hemoglobin 32.2 pg (28.0-32.0) Mean Corpuscular Hemoglobin Concent 34.0 g/dL (32.0-36.0) Red Cell Distribution Width 12.9 % (11.8-14.3) Platelet Count 227 10^3/uL (140-450) Mean Platelet Volume 7.6 fL (6.9-10.8) Neutrophils (%) (Auto) 86.8 % (37.0-80.0) Lymphocytes (%) (Auto) 4.9 % (10.0-50.0) Monocytes (%) (Auto) 7.1 % (0.0-12.0) Eosinophils (%) (Auto) 0.9 % (0.0-7.0) Basophils (%) (Auto) 0.3 % (0.0-2.0) Neutrophils # (Auto) 11.0 10 ^3/uL (1.6-8.6) Lymphocytes # (Auto) 0.6 10 ^3/uL (0.4-5.4) Monocytes # (Auto) 0.9 10 ^3/uL (0-1.3) Eosinophils # (Auto) 0.1 10 ^3/uL (0-0.8) Basophils # (Auto) 0 10 ^3/uL (0-0.2) Nucleated Red Blood Cells 0.1 % Iron Level 43 ug/dL (50-170) Total Iron Binding Capacity 242 ug/dL (250-425) Percent Iron Saturation 17.8 % (15-50) Ferritin 318.3 ng/mL (10-291) Test 06/16/25 05:36 06/15/25 12:01 06/15/25 10:40 06/15/25 04:46 Lipase 32 U/L (12-53) Influenza Type A Antigen Negative (Negative) Influenza Type B Antigen Negative (Negative) SARS-CoV-2 Antigen (Rapid) Negative (NEGATIVE) Magnesium Level 1.7 mg/dL (1.6-2.6) Triglycerides Level 68 mg/dL (< 150) Cholesterol Level 125 mg/dL (< 200) LDL Cholesterol 45 mg/dL (< 100) HDL Cholesterol 61 mg/dL (40-59) Thyroid Stimulating Hormone (TSH) 1.30 uIU/mL (0.55-4.78) Hemoglobin A1c 5.2 % A1C (<5.7) B-Type Natriuretic Peptide 259.21 pg/mL (0-100) Plasma/Serum Blood Alcohol < 3.0 mg/dL (<10) Test 06/14/25 21:40 06/14/25 16:34 06/14/25 15:45 Urine Color Yellow (Yellow) Urine Clarity Ex.turbid (Clear) Urine pH 5.5 (5.0-9.0) Urine Specific Bard 1.025 (1.001-1.035) Urine Protein Trace (Negative) Urine Ketones Trace (Negative) Urine Blood Negative /uL (Negative) Urine Nitrite Negative (Negative) Urine Bilirubin 1+ (Negative) Urine Urobilinogen 3 mg/dL (Negative) Urine Leukocyte Esterase 2+ /uL (Negative) Urine RBC 2 /hpf (0 - 4) Urine Microscopic WBC 27 /HPF (0-5) Urine Squamous Epithelial Cells Many /hpf (<5) Urine Amorphous Crystals Few /hpf (None Seen) Urine Bacteria Mod /hpf (None Seen) Urine Mucus Few (None Seen) Urine Glucose Normal mg/dL (Normal) Troponin I High Sensitivity 31 ng/L (</=34) Hepatitis A IgM Antibody Negative Hepatitis B Surface Antigen Negative (Negative) Hepatitis B Core IgM Antibody Negative (Negative) Hepatitis C Antibody Negative (Negative) Lactic Acid Level 2.3 mmol/L (0.4-2.0) Other Laboratory Tests 06/20/25 06:12 06/19/25 10:48 Brief Hx & Hospital Course: 75-year-old female w pmhx AFib, dyslipidemia, GERD, hypertension presents for evaluation of abdominal pain. Patient endorses a one day history of sharp abdominal pain across entire lower abdomen. Denies nausea or vomiting. No diarrhea. Reports having chills. Also patient was noted to be in AFib with RVR in the emergency department and started on Cardizem drip. Denies chest pain or palpitations. No shortness a breath. 06/15/2025: Patient here with AFib RVR, initially started on Cardizem drip, now discontinued by Cardiology, continuing beta aries. Patient has dyspnea on exertion, leg swelling orthopnea, rales, JVD, BNP elevated, CXR with pulmonary vascular congestion patient meeting Ralston criteria for heart failure. Echo is pending to see if it is systolic versus diastolic. EF pending. Cardiology on board for AFib RVR. She was started on metoprolol 50 XL,. We will trial Lasix 41 time today. Continue patient on telemetry. Pending echo read. 06/16 - patient still has rales and improved pedal edema, we will continue Lasix 20 daily. She has no abdominal pain today, initially when she patient came in chief complaint was abdominal pain, which was resolved yesterday but today patient has significant elevation of transaminases, transaminitis present with hyperbilirubinemia, ALP elevated labs consistent with possible gallstone obstruction, we will repeat liver ultrasound today right upper quadrant ultrasound repeat today. I am concerned for cholelithiasis as secondary issue with the primary issues of AFib RVR and CHF, echo is pending to be read database development project manager notified. 06/19: Continuing to improve numbers for liver, improving rales in pitting edema with diuresis. We will increase diuresis to 40 daily Lasix. Heart rate controlled with metoprolol and dig, over weekend echo showed severe pulmonary hypertension, which could be possible uncontrolled sleep apnea, patient needs outpatient sleep study. Weight loss also discuss with patient and patient's discuss options with PCP. Patient needs 1 more day of diuresis in 1 PT eval. Patient also remains on oxygen we will need to evaluate for oxygen today. Continue CPAP at night 5 cm H2O 06/20: No further diuresis, patient is euvolemic. Patient has diastolic CHF, with severe PH. No smoking history. Likely undiagnosed TORI. Patient needs outpatient sleep study. Until then control blood pressure, Lasix 20 p.o. daily,. Patient has oxygen requirement 2 L, she will have to follow up with pulmonology outpatient. Ultrasound negative for stones, no biliary dilatation. Patient labs appear to align with passed gallstone, could also be from hepatic congestion and/or Le fatty liver. Patient needs to loss could probably help TORI, fatty liver, osteoarthritis. Patient is to discuss weight loss options with PCP. Diagnosis: AFib RVR , resolved Acute decompensated heart failure, in exacerbation, diastolic dysfunction Severe pulmonary hypertension Morbid Obesity BMI 44.9 Severe obstructive sleep apnea, unable to exclude Acute abdominal pain, resolving, cholelithiasis ruledout Transaminitis, cholelithiasis rule out Le/fatty liver, likely Hyperbilirubinemia ALP elevated Hypertension Plan: - Patient needs outpatient sleep study. PCP to refer - continue Eliquis 5 mg twice daily - continue digoxin 125 mcg daily, hydrochlorothiazide 25 mg daily, losartan 50 mg daily, metoprolol XL 50 mg daily, - Lasix 20 p.o. daily,. - Patient has oxygen requirement 2 L, she will have to follow up with pulmonology outpatient. Oxygen ordered, we will hold discharge until off oxygen similar bedside - Patient needs weight loss which could probably help multiple conditions. Patient is to discuss weight loss options with PCP. Continuing other home medications not mentioned above Follow up with PCP to review discharge Condition at Discharge: Fair Final Diagnosis/Problems List AFib RVR , resolved Acute decompensated heart failure, in exacerbation, diastolic dysfunction Severe pulmonary hypertension Morbid Obesity BMI 44.9 Severe obstructive sleep apnea, unable to exclude Acute abdominal pain, resolving, cholelithiasis ruledout Transaminitis, cholelithiasis rule out Le/fatty liver, likely Hyperbilirubinemia ALP elevated Hypertension Discharge Disposition: Home Discharge Instruct/Medications Scheduled Apixaban Base (Eliquis), 1 TAB PO BID, (Reported) Atenolol (Atenolol), 1 TAB PO DAILY, (Reported) Hydrochlorothiazide (Hydrochlorothiazide), 50 MG PO DAILY, (Reported) Losartan Potassium (Losartan Potassium), 1 TAB PO DAILY, (Reported) Potassium Chloride (Potassium Chloride ER), 1 TAB PO DAILY, (Reported) Rosuvastatin Calcium (Rosuvastatin Calcium), 1 TAB PO DAILY, (Reported) Trazodone Hcl (Trazodone Hcl), 1 TAB PO QPM, (Reported) Discontinued Medications Atenolol (Atenolol), 50 MG PO DAILY, (Reported) Discontinued Reason: Prescription changed Trazodone HCl (Trazodone Hydrochloride), 50 MG PO, (Reported) Discontinued Reason: Prescription changed Discharge Statement: "Patient was advised to return to the ER or call 911 if any headaches, dizziness, shortness of breath, chest pain, abdominal pain, bleeding, fevers, or worsening of medical condition. Patient was counseled about treatment plan, medications, possible side effects, patientverbalized understanding. All questions were answered to the best of my ability. This discharge took greater then 30 minutes in planning, reviewing documentation, counseling the patient, and discussing with other team members." ASSESSMENT ASSESSMENT Assessment Date of Service: Jun 20, 2025 Billing Provider: RIGOBERTO MCCONNELL MD Common Visit Codes: 82995-ZWO/OBS DISCH DAY >30min RIGOBERTO MCCONNELL MD Jun 20, 2025 10:10
--- NOTE | 2025-06-20 10:27 | DVHPN2 ---
Progress Note Date Seen: Jun 20, 2025 Resident Creating Document: MAGALY QUINTANA RESIDENT Medical Necessity Reason Pt with a Central, PICC or Fol: No Subjective Review of Systems Patient seen and examined at bedside No further abdominal pain Notes some nausea but no vomiting Last bowel movement this a.m., soft Objective vital signs Vital Sign Date Time Temp Pulse Resp B/P (MAP) Pulse Ox O2 Delivery O2 Flow Rate FiO2 06/20/25 09:43 107 112/84 06/20/25 09:00 97.7 19 97 97.7 06/20/25 06:23 Nasal Cannula* 2 28 Total Intake and Output 06/19/25 06/19/25 06/20/25 15:00 23:00 07:00 Intake Total 50 ml 650 ml 400 ml Output Total 2 ml Balance 50 ml 650 ml 398 ml medications Current Medications Medications Dose Ordered Sig/Misti Route Start Time Stop Time Status Last Admin Dose Admin Pantoprazole Sodium 40 mg DAILY IV 06/15/25 10:00 06/20/25 09:37 40 MG Hydrochlorothiazide 50 mg DAILY PO 06/15/25 10:00 06/20/25 09:37 50 MG Acetaminophen/ Hydrocodone Bitart 1 tab Q4HP PRN PO 06/14/25 19:15 06/20/25 08:16 1 TAB Ondansetron HCl 4 mg Q4HP PRN IV 06/14/25 19:15 Acetaminophen 650 mg Q6HP PRN PO 06/15/25 00:00 06/16/25 13:19 650 MG Nitroglycerin 0.4 mg Q5MINP PRN SL 06/14/25 19:15 Morphine Sulfate 2 mg Q30M PRN IV 06/14/25 19:15 Enoxaparin Sodium 100 mg Q12HR SC 06/15/25 22:00 06/20/25 09:42 100 MG Ceftriaxone Sodium 50 ml @ 100 mls/hr DAILY@09 IV 06/16/25 09:00 06/20/25 09:34 100 MLS/HR Losartan Potassium 25 mg DAILY PO 06/16/25 10:00 06/20/25 09:42 25 MG Metoprolol Succinate 50 mg DAILY PO 06/16/25 10:00 06/20/25 09:43 50 MG Ipratropium [place] 0.5 mg Q4HR NEB 06/15/25 18:00 06/20/25 06:23 0.5 MG Digoxin 0.125 mg EOD PO 06/17/25 10:00 06/19/25 09:30 0.125 MG Furosemide 40 mg DAILY IV 06/20/25 10:00 06/20/25 09:36 40 MG Examination General Appearance: Cooperative. Well developed. Well nourished. NAD Pulmonary/Respiratory: Equal bilateral air entry Cardiovascular/Chest: Tachycardia Abdominal Exam: Normal bowel sounds. Soft. normal abdomen, no visible veins, Nontender. No hepatospenomegaly. No masses Neuro/Mental Status: A&O x4. Coherent. Thoughts/Psych: Normal thought pattern. Appropriate mood and affect. Good judgement and insight Skin Exam: Normal inspection. Normal color. Warm. Dry laboratory and microbiology Laboratory Tests 06/20/25 06:12 06/19/25 10:48 Test 06/20/25 06:12 Range/Units Serum Glucose 99 74-106 mg/dL Microbiology Date/Time Source Procedure Growth Status 06/15/25 10:50 Blood Blood Culture - Preliminary NO GROWTH AFTER 72 HOURS OF INCUBATION. Resulted 06/15/25 10:13 Voided Urine Urine Culture - Final Complete Labs and/or images reviewed: Labs reviewed by me, Image(s) reviewed by me Problem List/Assessment/Plan Problem List/Assessment/Plan Acute intractable abdominal pain likely secondary to acalculous cholecystitis, now resolved Probable acute pancreatitis? Transaminitis, downtrending Atrial fibrillation with RVR Gallbladder hydrops Morbid obesity Diverticulosis without diverticulitis Plan: Repeat imaging and/or EUS to rule out malignancy in 4-6 weeks Liver ultrasound: Diffusely echogenic liver which can be secondary to steatosis another diffuse hepatic process. CT abdomen pelvis: Gallbladder hydrops. Mild sigmoid diverticulosis. Negative hepatitis panel Elevated serum ferritin, normal% saturation Pending serum ESTRELLITA Consider HIDA scan and/or MRCP Clear liquid diet IV Protonix IV antibiotics Recommend follow up in the outpatient with GI services for further evaluation of hepatobiliary process. Thank you so much for the opportunity to consult on your patient. GI team will follow the patient. In case of any questions or concerns please feel free to reach out. Plan discussed with Dr. Weiss Plan discussed with: Patient, Spouse, Other (RN) My Orders My Orders Orders - MAGALY QUINTANA Procedure Category Date Status Time Estrellita; Direct LAB 06/19/25 In Process 16:25 Dietary Evaluation Review Recommendations by RD: Dietary education by RD Comments: 1) Continue cardiac diet 2) Encourage optimal PO intake 3) Refer to outpatient RD for weight management 4) Follow-up with cardiology 5) Continue to monitor I&O, labs, and skin integrity Expected Outcomes/Goals: 1) appetite and labs to improve 2) gradual wt loss 3) f/u in 3-5 days MAGALY QUINTANA RESIDENT Jun 20, 2025 10:27
[2025-06-20] MEDS ORDERED: IOHEXOL 350 MG/ML 100ML IJ ONE (10:37)
[2025-06-20] MEDS ORDERED: DIGO0.12 PO (12:25)
[2025-06-20] MEDS ORDERED: FURO1TAB33 PO (12:25)
[2025-06-20] MEDS ORDERED: METO-6 PO (12:25)
[2025-06-20] MEDS ORDERED: HYDR25TA5 PO (12:25)
[2025-06-20] MEDS ORDERED: LOS25T PO (12:25)
[2025-06-20] MEDS ORDERED: APIX5TAB PO (12:25)
--- NOTE | 2025-06-20 13:40 | DVH ---
Procedure: CT CT ANGIO CHEST CONTRAST Reason for study/Clinical History: ro pe. pe study Comparison Study: None Exam Date: 06/20/2025 10:[address] Angio Chest with Contrast TECHNIQUE: Multiple axial CT images of chest was performed following intravenous contrast administrat ion and coronal reformatting was performed. 3-D/MIP images were obtained. Radiation Dose : CTDI volume is 27.18 mGy. Dose-length product is 860.14 mGy*cm FINDINGS: Pulmonary Arteries: There are no filling defects within main, lobar, segmental and visualized subsegm ental branch pulmonary arteries. There is normal dimensional of main PA. Lungs: Right basilar linear opacity. There is no pneumothorax or pneumomediastinum. Aorta and Vasculature: There is normal caliber of thoracic aorta without evidence of aortic dissecti on, intramural hematoma or aneurysm. Lymph Nodes: There is no significant intrathoracic or axillary lymphadenopathy on CT size criteria. Lower Neck: Visualized portions of the thyroid gland are unremarkable. Mediastinum: Heart size is normal. There is no pericardial effusion. The esophagus is unremarkabl e. Musculoskeletal: No aggressive focal bony lesions, acute fractures or dislocation. Chest wall: Unremarkable Partially visualized upper abdomen is grossly unremarkable. IMPRESSION: No evidence of acute or chronic pulmonary embolism. Right basilar linear opacity which could represent pneumonia versus scarring. END IMPRESSION: All CT scans at this medical facility are performed using dose modulation techniques as appropriate t o a performed exam including the following: Automated exposure control was utilized; adjustment of th e MA and/or KV according to patient size; and use of iterative reconstruction technique.
[2025-06-20] MEDS: POTASSIUM EFFERVESENT TAB 25 MEQ PO ONE (15:43)
--- NOTE | 2025-06-21 00:09 | DVHPN2 ---
Progress Note - Dictate Date Seen: Jun 20, 2025 Medical Necessity Reason Pt with a Central, PICC or Fol: No Subjective Patient was seen and evaluated in follow up. Patient has no new complaints at this time. Patient denies any cardiac symptoms. Patient is cardiac stable for discharge. Telemetry reviewed. vital signs Vital Sign Date Time Temp Pulse Resp B/P (MAP) Pulse Ox O2 Delivery O2 Flow Rate FiO2 06/20/25 14:22 90 16 100 06/20/25 14:15 Nasal Cannula* 2 28 06/20/25 13:00 98.8 114/67 (83) 98.8 Total Intake and Output 06/20/25 06/20/25 06/21/25 15:00 23:00 07:00 Intake Total 50 ml Balance 50 ml objective GENERAL: Alert and oriented x 3. No acute distress. Morbidly obese. EYES: PERRL, EOMI. Anicteric. HENT: Moist mucous membranes. LUNGS: Diminished bilateral breath sounds, expiratory wheezing. CARDIOVASCULAR: Irregular rate and rhythm. ABDOMEN: Soft, nontender and nondistended. EXTREMITIES: BLE non-pitting edema. NEUROLOGIC: No focal neurological deficits. SKIN: Warm, dry. laboratory and microbiology Laboratory Tests 06/20/25 06:12 06/19/25 10:48 Test 06/20/25 06:12 Range/Units Serum Glucose 99 74-106 mg/dL Problem List Sepsis with UTI. Atrial fibrillation with rapid ventricular rate, Stage IIIb, now rate controlled (on Eliquis/Atenolol at home). Rule out structural heart disease. Pulmonary hypertension, moderate to severe. Hypertension. Dyslipidemia. [place] vs CKD. Morbid obesity. Pulmonary HTN. Assessment/Plan Continued all current supportive medical care. Morphine and Isom for pain management. IV antibiotics as ordered. DVT and GI prophylactics. Metoprolol. Losartan. Additional plan as per the hospital course. Dietary Evaluation Review Recommendations by RD: Dietary education by RD Comments: 1) Continue cardiac diet 2) Encourage optimal PO intake 3) Refer to outpatient RD for weight management 4) Follow-up with cardiology 5) Continue to monitor I&O, labs, and skin integrity Expected Outcomes/Goals: 1) appetite and labs to improve 2) gradual wt loss 3) f/u in 3-5 days Plan discussed with: Patient AFIA CASPER MD Jun 21, 2025 00:09
== END 2025-06-20 15:50 | disposition home or self-care (01) | DRG 871 ==
LOC: ER 12:45 → OVERFLOW 19:01 → TELE-EAST 06-15 05:39
PROVIDERS: ADMIT Student in an Organized Health Care Education/Training Program; ATTEND Student in an Organized Health Care Education/Training Program
PROC: 05HF33Z Insertion of Infusion Device into Left Cephalic Vein, Percutaneous Approach (ICD-10-PCS; principal; 2025-06-14)
PROC: B54NZZA Ultrasonography of Left Upper Extremity Veins, Guidance (ICD-10-PCS; 2025-06-14)
DX: A41.9 Sepsis, unspecified organism (principal); I50.33 Acute on chronic diastolic (congestive) heart failure; N39.0 Urinary tract infection, site not specified; Z68.41 Body mass index [BMI] 40.0-44.9, adult; K82.1 Hydrops of gallbladder; E66.01 Morbid (severe) obesity due to excess calories; I48.91 Unspecified atrial fibrillation; I11.0 Hypertensive heart disease with heart failure; K21.9 Gastro-esophageal reflux disease without esophagitis; E78.5 Hyperlipidemia, unspecified; E83.42 Hypomagnesemia; G47.33 Obstructive sleep apnea (adult) (pediatric); I27.20 Pulmonary hypertension, unspecified; K57.30 Diverticulosis of large intestine without perforation or abscess without bleeding; K76.0 Fatty (change of) liver, not elsewhere classified; Z83.3 Family history of diabetes mellitus; Z98.84 Bariatric surgery status; Z82.49 Family history of ischemic heart disease and other diseases of the circulatory system; Z80.52 Family history of malignant neoplasm of bladder; Z79.899 Other long term (current) drug therapy; K27.9 Peptic ulcer, site unspecified, unspecified as acute or chronic, without hemorrhage or perforation
CPT/HCPCS: 36415; 36600; 71045; 71275; 74176; 76705; 80048; 80053; 80061; 80074; 80320; 81001; 82728; 82805; 83036; 83540; 83550; 83605; 83690; 83735; 83880; 84443; 84484; 85025; 86038; 87040; 87086; 87426; 87804; 93005; 93306; 94640; 96361; 96374; 96375; 97110; 97116; 97163; G0378; J2405; J2470; J2543